=== PATIENT | female | born 1940 | race Caucasian/White ===

== ENCOUNTER → 2019-10-15 08:02 | Outpatient (CLI) | payer MEDICARE, SELFPAY ==
--- NOTE | ~2019-10-15 | MMUS_ITS ---
EXAMINATION: MM diagnostic cookie BI w branden, US breast RT limited HISTORY: Palpable right breast mass TECHNIQUE: Additional 3-D tomosynthesis images of the right breast were performed and synthetic 2-D i mages were generated. CAD analysis was submitted and interpreted. High resolution right breast ultras ound was performed. COMPARISON: None FINDINGS: MAMMOGRAPHIC FINDINGS: The breasts are heterogenously dense, which may obscure small masses. There is an irregular shaped 2. 6 cm mass in the upper outer quadrant of the right breast corresponding to the palpable finding. Ther e are pleomorphic internal calcifications within the mass. There is no mammographic evidence for zack gnancy in the left breast. ULTRASOUND: Limited right breast ultrasound: At 10:00, 7 cm from the nipple in the area of palpable concern there is an irregular shaped hypoechoi c mass measuring 2.8 x 2.2 x 1.6 cm. There is internal vascularity with mixed posterior attenuation. IMPRESSION: 1. Irregular shaped hypoechoic mass of the right breast at 10:00, 7 cm from the nipple measuring 2.8 x 2.2 x 1.6 cm. 2. Recommend ultrasound-guided right breast biopsy. BI-RADS CATEGORY 4-SUSPICIOUS ABNORMALITY Reviewed, dictated and finalized at location A. IMPRESSION: 1. Irregular shaped hypoechoic mass of the right breast at 10:00, 7 cm from the nipple measuring 2.8 x 2.2 x 1.6 cm. 2. Recommend ultrasound-guided right breast biopsy. BI-RADS CATEGORY 4-SUSPICIOUS ABNORMALITY
== END ==
PROVIDERS: PCP Family Medicine; Visit Provider Family Medicine
DX: N63.10 Unspecified lump in the right breast, unspecified quadrant (principal); R92.8 Other abnormal and inconclusive findings on diagnostic imaging of breast
CPT/HCPCS: 76642; 77062; 77066; G0279

== ENCOUNTER 2019-10-23 09:06 | Outpatient (CLI) | payer MEDICARE, SELFPAY ==
--- NOTE | ~2019-10-23 | MM_ITS ---
MM post biopsy invasive RT DATE: 10/23/2019 10:29 INDICATION: Right 10:00 up to 2.8 cm breast mass TECHNIQUE: Digital MLO and cc views following stereotactic breast biopsy of 10:00 right breast mass COMPARISON: None FINDINGS: A radiopaque biopsy marker is present within an irregular hyperdense very suspicious mass s ituated posteriorly in the upper outer quadrant of the right breast. IMPRESSION: Successful biopsy marker placement at large irregular hyperdense mass in posterior upper outer right breast Reviewed, dictated and finalized at Location A. Reviewed, dictated and finalized at location A. IMPRESSION: Successful biopsy marker placement at large irregular hyperdense ma ss in posterior upper outer right breast
--- NOTE | ~2019-10-23 | US_ITS ---
EXAMINATION: US GUIDED NEEDLE BIOPSY DATE: 10/23/2019 10:30 CDT INDICATION: Irregular hypoechoic 2.8 x 2.2 x 1.6 cm 10:00 right breast mass 7 cm from nipple TECHNIQUE AND FINDINGS: The risks and potential benefits of the procedure were discussed with the patient, and written inform ed consent was obtained. Timeout procedure was performed. After sterile preparation of the right digna st, 1% lidocaine was utilized for local anesthesia. A 14G spring-loaded biopsy gun needle was advanced to the edge of the region of interest from a medio lateral approach utilizing sonographic guidance. A total of three tissue core samples were obtained through the lesion. An Inrad tissue marker clip was then placed at the biopsy site. Hemostasis was a chieved. A sterile bandage was applied. The patient tolerated procedure well and there was no evidence of immediate complication. The patien t was given verbal instructions prior to departing from the department. A two view mammogram was orde red to document tissue marker clip placement. The tissue samples were submitted to surgical pathology for histologic analysis. IMPRESSION: 1. Successful ultrasound guided biopsy of right 10:00 breast mass with biopsy marker placement. Plea se refer to pathology report for histologic analysis. Reviewed, dictated and finalized at Location A. Reviewed, dictated and finalized at location A. IMPRESSION: 1. Successful ultrasound guided biopsy of right 10:00 breast mass with biopsy marker placement. Please refer to pathology report for histologic analysis.
== END 2019-10-23 09:07 | disposition home or self-care (01) ==
LOC: ANHIMG 09:09
PROVIDERS: PCP Family Medicine; Visit Provider Family Medicine
DX: N63.41 Unspecified lump in right breast, subareolar (principal); C50.911 Malignant neoplasm of unspecified site of right female breast
CPT/HCPCS: 19083; 88305; 88342

== ENCOUNTER 2019-10-29 09:40 | Outpatient (CLI) | payer MEDICARE, SELFPAY ==
[2019-10-29 10:03] LABS: Basophils Percent Auto 0.4 % (0.2-1.2); Eosinophils Absolute Auto 0.1 K/mm3 (0-0.3); Eosinophils Percent Auto 1.3 % (0-4.4); Hematocrit 36.2 % (37.0-47.0); Hemoglobin 11.4 g/dL (12.0-15.0); Immature Granulocyte Absolute 0.04 K/mm3 (0.00-0.031); Immature Granulocyte Percent A 0.5 % (0-0.5); Lymphocytes Absolute Auto 1.01 K/mm3 (0.9-3.2); Lymphocytes Percent Auto 12.1 % (18.3-44.2); Mean Corpuscular HGB Conc 31.5 g/dl (32-36); Mean Corpuscular Hemoglobin 28.2 pg (26-34); Mean Corpuscular Volume 89.6 fl (80-100); Mean Platelet Volume 9.9 fl (7.4-10.4); Monocytes Absolute Auto 0.6 K/mm3 (0.1-0.6); Monocytes Percent Auto 6.9 % (2.6-8.5); Neutrophils Absolute Auto 6.6 K/mm3 (1.3-6.7); Neutrophils Percent Auto 78.8 % (45.5-73.1); Platelet Count Result 159 k/mm3 (150-375); Red Blood Count 4.04 M/mm3 (4.2-5.4); Red Cell Distribution Width 13.8 % (11.5-14.5); White Blood Count 8.3 K/mm3 (4.5-10.0)
[2019-10-29 12:28] LABS: Alanine Aminotransferase 40 U/L (4-35); Albumin Level 3.9 g/dL (3.5-5.1); Alkaline Phosphatase 61 U/L (38-126); Aspartate Amino Transferase 27 U/L (14-36); Bilirubin,Total 0.3 mg/dL (0.2-1.3); Blood Urea Nitrogen 29 mg/dL (7-17); Calcium 9.1 mg/dL (8.4-10.2); Carbon Dioxide 26 mmol/L (22-30); Chloride 109 mmol/L (98-107); Estimated Glomerular Filt Rate 33; Glucose 117 mg/dL (65-105); Potassium 4.3 mmol/L (3.4-5.0); Sodium 141 mmol/L (137-145)
== END 2019-10-29 09:41 | disposition home or self-care (01) ==
LOC: ANHLAB 09:55
PROVIDERS: PCP Family Medicine; Visit Provider Internal Medicine Hematology & Oncology
DX: C50.911 Malignant neoplasm of unspecified site of right female breast (principal)
CPT/HCPCS: 36415; 80053; 85025

== ENCOUNTER 2019-11-27 09:12 | Outpatient (CLI) | payer MEDICARE, SELFPAY ==
--- NOTE | ~2019-11-27 | NM_ITS ---
EXAMINATION: NM zaida stress w perfusion DATE: 11/27/2019 15:04 CDT INDICATION: Atrial fibrillation. TECHNIQUE: Rest images were obtained following intravenous administration of 9.8 mCi Tc99m tetrofosmi n (Myoview). The patient was infused intravenously with Lexiscan (regadenoson). Then, 30 mCi Tc99m te trofosmin (Myoview) was administered intravenously, and stress images were obtained. Data was reconst ructed into short axis and horizontal and vertical long axis SPECT images. Gated SPECT images were al so obtained. COMPARISON: None. FINDINGS: There is no definite reversible or fixed perfusion abnormality to suggest ischemia or infar ction. There is no segmental wall motion abnormality. Left ventricular ejection fraction measures 7 5%. IMPRESSION: 1. No definite ischemia or infarct. 2. Normal left ventricular ejection fraction measuring 75%. Reviewed, dictated and finalized at location A.
--- NOTE | 2019-11-27 09:00 | EST_ITS ---
Patient Info Name: Angela Guzmán Age: 79 years : 1940 Gender: Female Ht: 61 in Wt: 144 lbs BSA: 1.70 m2 Exam Date: 11/27/2019 11:08 AM Exam Location: [facility] Stress Patient Status: Outpatient Admit Date: 11/27/2019 Staff Ordering Physician: Fawad Richard DO Attending Provider: FAWAD RICHARD DO Exercise Technologist: Emelia Becker RDCS Exam Type: CA stress zaida w NM Study Info Indications I48.0 - Paroxysmal atrial fibrillation A regadenoson stress test was performed. Summary 1. 1. Negative lexiscan stress test for ischemic ST changes by ECG criteria. 2. 2. Baseline hypertension. 3. 3. Nuclear scan to follow and will be reported separately. Please correlate with it. 4. 4. Patient informed of the results. Protocol: Lexiscan Stress ECG Details Stage: REST Duration (min): 6 min : 6 sec HR (bpm): 66 SBP (mmHg): 169 DBP (mmHg): 70 Stage: REST Duration (min): 25 min : 54 sec HR (bpm): 61 SBP (mmHg): 169 DBP (mmHg): 70 Stage: STAGE 1 Duration (min): 1 min : 0 sec HR (bpm): 71 SBP (mmHg): 179 DBP (mmHg): 50 Stage: RECOVERY Duration (min): 1 min : 0 sec HR (bpm): 70 SBP (mmHg): 164 DBP (mmHg): 51 Stage: RECOVERY Duration (min): 2 min : 0 sec HR (bpm): 75 SBP (mmHg): 164 DBP (mmHg): 51 Stage: RECOVERY Duration (min): 3 min : 0 sec HR (bpm): 70 SBP (mmHg): 154 DBP (mmHg): 53 Stage: RECOVERY Duration (min): 3 min : 4 sec HR (bpm): 67 SBP (mmHg): 154 DBP (mmHg): 53 Rest HR: 61 bpm Peak HR: 75 bpm Rest Sys BP: 169 mmHg Peak Sys BP: 179 mmHg Max Pred HR: 139 bpm % Max Pred HR: 54 % Target HR: 118 bpm Max RPP: 13,425 bpm*mmHg Termination Reason: Completed protocol Cardiac Symptoms: Shortness of breath Total Time: 1 min : 0 sec Rest Em BP: 70 mmHg Peak Em BP: 50 mmHg Total Dose: 0.4 mg Resting ECG Atrial fibrillation, delayed R/S transition. Stress ECG No ST changes. Arrhythmias No other arrhythmias. Report Signatures
--- NOTE | 2019-11-27 09:00 | ECHO_ITS ---
Patient Info Name: Angela Guzmán Age: 79 years : 1940 Gender: Female Ht: 61 in Wt: 144 lbs BSA: 1.70 m2 HR: 75 bpm BP: 165 / 71 mmHg Heart Rhythm: Atrial Fibrillation Technical Quality: Good Exam Date: 11/27/2019 9:32 AM Exam Location: [facility] Pulmonary Patient Status: Outpatient Admit Date: 11/27/2019 Staff Ordering Physician: Fawad Salvador DO Official Court Reporter: Esthela Parsons RDCS Attending Provider: Fawad Salvador DO Exam Type: CA echo doppler color flow Study Info Indications - paroxysmal afib Complete two-dimensional, color flow and Doppler transthoracic echocardiogram is performed. Summary 1. Left ventricular chamber dimension is normal. 2. Left ventricular systolic function is normal, estimated at 65-70%. 3. There is moderately increased left ventricular wall thickness. 4. The left ventricular diastolic function is abnormal. 5. E/E' 23 is elevated. 6. Patient is in atrial fibrillation. 7. Left atrial chamber dimension is severely enlarged. 8. Right atrial chamber dimension is moderately enlarged. 9. There is mild aortic valve sclerosis. 10. The mitral valve has moderately calcified annulus. 11. There is mild to moderate mitral valve regurgitation. 12. There is mild to moderate tricuspid valve regurgitation. 13. Moderate pulmonary hypertension, estimated pulmonary arterial systolic pressure is 53 mmHg. 14. Dilated inferior vena cava with >50% collapse upon inspiration consistent with elevated right atrial pressure, 10 mmHg. Left Ventricle Patient is in atrial fibrillation. E/E' 23 is elevated. Left ventricular chamber dimension is normal. Left ventricular systolic function is normal, estimated at 65-70%. There is moderately increased left ventricular wall thickness. The left ventricular diastolic function is abnormal. Right Ventricle Right ventricular chamber dimension is normal. Right ventricular systolic function is normal. Left Atria Left atrial chamber dimension is severely enlarged. Right Atria Right atrial chamber dimension is moderately enlarged. Aortic Valve The aortic valve is trileaflet. There is mild aortic valve sclerosis. There is no aortic valve stenosis. There is no aortic valve regurgitation. Pulmonic Valve There is no pulmonic regurgitation. Mitral Valve The mitral valve has moderately calcified annulus. There is no mitral valve stenosis. There is mild to moderate mitral valve regurgitation. Tricuspid Valve There is mild to moderate tricuspid valve regurgitation. Moderate pulmonary hypertension, estimated pulmonary arterial systolic pressure is 53 mmHg. Pericardium/Pleural There is no pericardial effusion. Inferior Vena Cava Dilated inferior vena cava with >50% collapse upon inspiration consistent with elevated right atrial pressure, 10 mmHg. Aorta The aortic root size at the sinus of Valsalva is normal. Left Ventricular Outflow Tract Name Value Normal LVOT 2D LVOT Diameter 2.0 cm LVOT Doppler LVOT Peak Gradient 4 mmHg LVOT Mean Gradient 2 mmHg LVOT VTI
== END 2019-11-27 09:13 | disposition home or self-care (01) ==
PROVIDERS: PCP Family Medicine; Visit Provider Internal Medicine Cardiovascular Disease
DX: Z01.810 Encounter for preprocedural cardiovascular examination (principal); I48.0 Paroxysmal atrial fibrillation; I51.7 Cardiomegaly; I35.8 Other nonrheumatic aortic valve disorders; I08.1 Rheumatic disorders of both mitral and tricuspid valves; I27.20 Pulmonary hypertension, unspecified
CPT/HCPCS: 78452; 93017; 93306; A9502; J2785

== ENCOUNTER 2020-01-25 10:57 | Outpatient (CLI) | payer MEDICARE, SELFPAY ==
[2020-01-25 11:11] LABS: Basophils Absolute Auto 0.1 K/mm3 (0.0-0.1); Eosinophils Absolute Auto 0.2 K/mm3 (0-0.3); Eosinophils Percent Auto 3.5 % (0-4.4); Hematocrit 34.9 % (37.0-47.0); Hemoglobin 10.7 g/dL (12.0-15.0); Immature Granulocyte Absolute 0.01 K/mm3 (0.00-0.031); Immature Granulocyte Percent A 0.2 % (0-0.5); Lymphocytes Absolute Auto 0.99 K/mm3 (0.9-3.2); Lymphocytes Percent Auto 19.1 % (18.3-44.2); Mean Corpuscular HGB Conc 30.7 g/dl (32-36); Mean Corpuscular Hemoglobin 27.8 pg (26-34); Mean Corpuscular Volume 90.6 fl (80-100); Monocytes Absolute Auto 0.3 K/mm3 (0.1-0.6); Monocytes Percent Auto 5.6 % (2.6-8.5); Neutrophils Absolute Auto 3.7 K/mm3 (1.3-6.7); Neutrophils Percent Auto 70.6 % (45.5-73.1); Platelet Count Result 210 k/mm3 (150-375); Red Blood Count 3.85 M/mm3 (4.2-5.4); Red Cell Distribution Width 13.4 % (11.5-14.5); White Blood Count 5.2 K/mm3 (4.5-10.0)
[2020-01-25 12:28] LABS: Alanine Aminotransferase 25 U/L (4-35); Albumin Level 3.6 g/dL (3.5-5.1); Alkaline Phosphatase 66 U/L (38-126); Aspartate Amino Transferase 28 U/L (14-36); Bilirubin,Total 0.5 mg/dL (0.2-1.3); Blood Urea Nitrogen 26 mg/dL (7-17); Calcium 8.8 mg/dL (8.4-10.2); Carbon Dioxide 28 mmol/L (22-30); Chloride 105 mmol/L (98-107); Estimated Glomerular Filt Rate 33; Glucose 109 mg/dL (65-105); Potassium 4.5 mmol/L (3.4-5.0); Sodium 138 mmol/L (137-145)
[2020-01-27 12:51] LABS: CA 27.29 26 U/mL (<38)
== END 2020-01-25 10:58 | disposition home or self-care (01) ==
PROVIDERS: PCP Family Medicine; Visit Provider Internal Medicine Hematology & Oncology
DX: C50.911 Malignant neoplasm of unspecified site of right female breast (principal)
CPT/HCPCS: 36415; 80053; 85025; 86300

== ENCOUNTER 2020-04-07 14:13 | Outpatient (CLI) | payer MEDICARE, SELFPAY ==
[2020-04-07 14:38] LABS: Basophils Percent Auto 0.6 % (0.2-1.2); Eosinophils Absolute Auto 0.1 K/mm3 (0-0.3); Eosinophils Percent Auto 2.8 % (0-4.4); Immature Granulocyte Absolute 0.01 K/mm3 (0.00-0.031); Immature Granulocyte Percent A 0.3 % (0-0.5); Lymphocytes Absolute Auto 0.48 K/mm3 (0.9-3.2); Lymphocytes Percent Auto 13.3 % (18.3-44.2); Mean Corpuscular HGB Conc 32.3 g/dl (32-36); Mean Corpuscular Hemoglobin 27.5 pg (26-34); Mean Corpuscular Volume 85.2 fl (80-100); Mean Platelet Volume 10.1 fl (7.4-10.4); Monocytes Absolute Auto 0.4 K/mm3 (0.1-0.6); Monocytes Percent Auto 10.2 % (2.6-8.5); Neutrophils Absolute Auto 2.6 K/mm3 (1.3-6.7); Neutrophils Percent Auto 72.8 % (45.5-73.1); Platelet Count Result 124 k/mm3 (150-375); Red Blood Count 3.64 M/mm3 (4.2-5.4); White Blood Count 3.6 K/mm3 (4.5-10.0)
[2020-04-07 14:43] LABS: Blood Urea Nitrogen 35 mg/dL (8-26); Carbon Dioxide 23 mmol/L (22-30); Chloride 105 mmol/L (98-109); Estimated Glomerular Filt Rate 27; Glucose 160 mg/dL (70-105); Potassium 4.9 mmol/L (3.5-4.9); Sodium 139 mmol/L (138-146)
[2020-04-07 17:14] LABS: Alanine Aminotransferase 20 U/L (4-35); Albumin Level 3.6 g/dL (3.5-5.1); Alkaline Phosphatase 77 U/L (38-126); Anion Gap 6 mmol/L (8-16); Aspartate Amino Transferase 23 U/L (14-36); Bilirubin,Total 0.6 mg/dL (0.2-1.3); Blood Urea Nitrogen 38 mg/dL (7-17); Calcium 8.6 mg/dL (8.4-10.2); Carbon Dioxide 24 mmol/L (22-30); Chloride 106 mmol/L (98-107); Estimated Glomerular Filt Rate 29; Glucose 158 mg/dL (65-105); Potassium 5.1 mmol/L (3.4-5.0); Sodium 136 mmol/L (137-145)
== END 2020-04-07 14:14 | disposition home or self-care (01) ==
PROVIDERS: PCP Family Medicine; Visit Provider Internal Medicine Hematology & Oncology
DX: C50.911 Malignant neoplasm of unspecified site of right female breast (principal)
CPT/HCPCS: 36415; 80048; 80053; 85025

== ENCOUNTER 2020-11-15 14:09 | Outpatient (CLI) | payer MEDICARE, SELFPAY ==
[2020-11-15 14:25] LABS: Basophils Percent Auto 0.6 % (0.2-1.2); Eosinophils Percent Auto 0.6 % (0-4.4); Hematocrit 38.5 % (37.0-47.0); Hemoglobin 12.4 g/dL (12.0-15.0); Immature Granulocyte Absolute 0.02 K/mm3 (0.00-0.031); Immature Granulocyte Percent A 0.4 % (0-0.5); Lymphocytes Absolute Auto 0.75 K/mm3 (0.9-3.2); Lymphocytes Percent Auto 14.6 % (18.3-44.2); Mean Corpuscular HGB Conc 32.2 g/dl (32-36); Mean Corpuscular Hemoglobin 28.1 pg (26-34); Mean Corpuscular Volume 87.3 fl (80-100); Mean Platelet Volume 9.3 fl (7.4-10.4); Monocytes Absolute Auto 0.3 K/mm3 (0.1-0.6); Monocytes Percent Auto 5.8 % (2.6-8.5); Platelet Count Result 171 k/mm3 (150-375); Red Blood Count 4.41 M/mm3 (4.2-5.4); Red Cell Distribution Width 14.4 % (11.5-14.5); White Blood Count 5.1 K/mm3 (4.5-10.0)
[2020-11-15 16:30] LABS: Alanine Aminotransferase 18 U/L (4-35); Albumin Level 4.4 g/dL (3.5-5.1); Alkaline Phosphatase 69 U/L (38-126); Anion Gap 5 mmol/L (8-16); Aspartate Amino Transferase 33 U/L (14-36); Blood Urea Nitrogen 21 mg/dL (7-17); Calcium 9.8 mg/dL (8.4-10.2); Carbon Dioxide 32 mmol/L (22-30); Chloride 106 mmol/L (98-107); Estimated Glomerular Filt Rate 31; Glucose 81 mg/dL (65-105); Sodium 143 mmol/L (137-145)
[2020-11-19 08:02] LABS: CA 15-3 20 U/mL (<32)
== END 2020-11-15 14:10 | disposition home or self-care (01) ==
LOC: ANHLAB 14:13
PROVIDERS: PCP Family Medicine; Visit Provider Internal Medicine Hematology & Oncology
DX: C50.911 Malignant neoplasm of unspecified site of right female breast (principal)
CPT/HCPCS: 36415; 80053; 85025; 86300

== ENCOUNTER → 2020-12-19 08:06 | Outpatient (REF) | payer MEDICARE, SELFPAY | LOC: ANHLAB 08:06 | PROVIDERS: PCP Family Medicine; Visit Provider Nurse Practitioner | DX: C44.612 Basal cell carcinoma of skin of right upper limb, including shoulder (principal) | CPT/HCPCS: 88305 ==

== ENCOUNTER → 2021-01-19 16:01 | Outpatient (REF) | payer MEDICARE, SELFPAY | LOC: ANHLAB 16:01 | PROVIDERS: PCP Family Medicine; Visit Provider Nurse Practitioner | DX: D04.5 Carcinoma in situ of skin of trunk (principal); C44.519 Basal cell carcinoma of skin of other part of trunk | CPT/HCPCS: 88305 ==

== ENCOUNTER → 2021-02-20 13:44 | Outpatient (REF) | payer MEDICARE, SELFPAY | LOC: ANHLAB 13:44 | PROVIDERS: PCP Internal Medicine Hematology & Oncology; Visit Provider Nurse Practitioner | DX: C44.529 Squamous cell carcinoma of skin of other part of trunk (principal) | CPT/HCPCS: 88305 ==

== ENCOUNTER 2021-03-20 13:48 | Outpatient (CLI) | payer MEDICARE, SELFPAY ==
[2021-03-20 14:07] LABS: Basophils Percent Auto 0.5 % (0.2-1.2); Eosinophils Absolute Auto 0.1 K/mm3 (0-0.3); Eosinophils Percent Auto 1.6 % (0-4.4); Hemoglobin 10.7 g/dL (12.0-15.0); Immature Granulocyte Absolute 0.02 K/mm3 (0.00-0.031); Immature Granulocyte Percent A 0.5 % (0-0.5); Lymphocytes Absolute Auto 0.46 K/mm3 (0.9-3.2); Lymphocytes Percent Auto 12.5 % (18.3-44.2); Mean Corpuscular HGB Conc 31.5 g/dl (32-36); Mean Platelet Volume 9.6 fl (7.4-10.4); Monocytes Absolute Auto 0.2 K/mm3 (0.1-0.6); Monocytes Percent Auto 6.5 % (2.6-8.5); Neutrophils Absolute Auto 2.9 K/mm3 (1.3-6.7); Neutrophils Percent Auto 78.4 % (45.5-73.1); Platelet Count Result 132 k/mm3 (150-375); Red Blood Count 3.82 M/mm3 (4.2-5.4); Red Cell Distribution Width 15.2 % (11.5-14.5); White Blood Count 3.7 K/mm3 (4.5-10.0)
[2021-03-20 14:10] LABS: Blood Urea Nitrogen 26 mg/dL (8-26); Carbon Dioxide 26 mmol/L (22-30); Chloride 102 mmol/L (98-109); Estimated Glomerular Filt Rate 25; Glucose 218 mg/dL (70-105); Potassium 4.6 mmol/L (3.5-4.9); Sodium 142 mmol/L (138-146)
[2021-03-20 16:51] LABS: Alanine Aminotransferase 24 U/L (4-35); Albumin Level 3.8 g/dL (3.5-5.1); Alkaline Phosphatase 63 U/L (38-126); Anion Gap 8 mmol/L (8-16); Aspartate Amino Transferase 29 U/L (14-36); Bilirubin,Total 0.7 mg/dL (0.2-1.3); Blood Urea Nitrogen 25 mg/dL (7-17); Calcium 9.2 mg/dL (8.4-10.2); Carbon Dioxide 27 mmol/L (22-30); Chloride 106 mmol/L (98-107); Estimated Glomerular Filt Rate 29; Glucose 206 mg/dL (65-110); Potassium 4.8 mmol/L (3.4-5.0); Sodium 141 mmol/L (137-145)
[2021-03-23 07:18] LABS: CA 15-3 18 U/mL (<32)
== END 2021-03-20 13:49 | disposition home or self-care (01) ==
LOC: ANHLAB 13:52
PROVIDERS: PCP Internal Medicine Hematology & Oncology; Visit Provider Internal Medicine Hematology & Oncology
DX: C50.911 Malignant neoplasm of unspecified site of right female breast (principal)
CPT/HCPCS: 36415; 80048; 80053; 85025; 86300

== ENCOUNTER 2021-09-13 11:23 | Outpatient (CLI) | payer MEDICARE, SELFPAY ==
[2021-09-13 11:38] LABS: Basophils Percent Auto 0.6 % (0.2-1.2); Eosinophils Absolute Auto 0.1 K/mm3 (0-0.3); Eosinophils Percent Auto 2.1 % (0-4.4); Hematocrit 35.1 % (37.0-47.0); Hemoglobin 10.7 g/dL (12.0-15.0); Immature Granulocyte Absolute 0.01 K/mm3 (0.00-0.031); Immature Granulocyte Percent A 0.2 % (0-0.5); Lymphocytes Absolute Auto 0.58 K/mm3 (0.9-3.2); Lymphocytes Percent Auto 12.3 % (18.3-44.2); Mean Corpuscular HGB Conc 30.5 g/dl (32-36); Mean Corpuscular Hemoglobin 29.2 pg (26-34); Mean Corpuscular Volume 95.9 fl (80-100); Mean Platelet Volume 9.8 fl (7.4-10.4); Monocytes Absolute Auto 0.3 K/mm3 (0.1-0.6); Monocytes Percent Auto 6.4 % (2.6-8.5); Neutrophils Absolute Auto 3.7 K/mm3 (1.3-6.7); Neutrophils Percent Auto 78.4 % (45.5-73.1); Platelet Count Result 164 k/mm3 (150-375); Red Blood Count 3.66 M/mm3 (4.2-5.4); Red Cell Distribution Width 13.2 % (11.5-14.5); White Blood Count 4.7 K/mm3 (4.5-10.0)
[2021-09-13 16:06] LABS: Alanine Aminotransferase 23 U/L (4-35); Albumin Level 3.9 g/dL (3.5-5.1); Alkaline Phosphatase 69 U/L (38-126); Anion Gap 8 mmol/L (8-16); Aspartate Amino Transferase 34 U/L (14-36); Bilirubin,Total 0.8 mg/dL (0.2-1.3); Blood Urea Nitrogen 35 mg/dL (7-17); Calcium 9.5 mg/dL (8.4-10.2); Carbon Dioxide 26 mmol/L (22-30); Chloride 104 mmol/L (98-107); Estimated Glomerular Filt Rate 25; Glucose 165 mg/dL (65-110); Potassium 5.2 mmol/L (3.4-5.0); Sodium 138 mmol/L (137-145)
[2021-09-16 07:13] LABS: CA 15-3 17 U/mL (<32)
== END 2021-09-13 11:24 | disposition home or self-care (01) ==
LOC: ANHLAB 11:25
PROVIDERS: PCP Family Medicine; Visit Provider Internal Medicine Hematology & Oncology
DX: C50.911 Malignant neoplasm of unspecified site of right female breast (principal)
CPT/HCPCS: 36415; 80053; 85025; 86300

== ENCOUNTER → 2021-09-21 12:15 | Outpatient (REF) | payer MEDICARE, SELFPAY | LOC: ANHLAB 12:15 | PROVIDERS: PCP Family Medicine; Visit Provider Nurse Practitioner | DX: C44.712 Basal cell carcinoma of skin of right lower limb, including hip (principal); D04.71 Carcinoma in situ of skin of right lower limb, including hip; D04.62 Carcinoma in situ of skin of left upper limb, including shoulder | CPT/HCPCS: 88305 ==

== ENCOUNTER → 2021-09-22 12:14 | Outpatient (CLI) | payer MEDICARE, SELFPAY ==
--- NOTE | ~2021-09-22 | DEXA_ITS ---
Bone Density Report Name: SHAWNA LOMAS Age: 81 Sex: Female Ethnicity: White Date of : 1940 Indication: postmenopausal; screening for osteoporosis; height loss; hysterectomy; Referring Provider: Zackary Arriaga Study: Bone densitometry was performed. Exam Date: September 22, 2021 Accession number: [id number] Bone Density: Region BMD T-score Z-score Classification AP Spine (L1-L4) 1.384 3.1 5.9 Normal Femoral Neck (Left) 0.735 -1.0 1.4 Normal Total Hip (Left) 0.905 -0.3 1.9 Normal Femoral Neck (Right) 0.688 -1.4 1.0 Osteopenia Total Hip (Right) 0.836 -0.9 1.4 Normal Total Hip Mean 0.871 -0.6 1.7 Normal World Health Organization criteria for BMD impression classify patients as: Normal (T-score at or above -1.0), Osteopenia (T-score between -1.0 and -2.5), or Osteoporosis (T-score at or below -2.5). 10-year Fracture Risk(1): Major Osteoporotic Fracture 13% Hip Fracture 3.3% Reported Risk Factors: [place] (), Neck BMD=0.688, BMI=28.8 (1) FRAX(R) Version 3.08. Fracture probability calculated for an untreated patient. Fracture probability may be lower if the patient has received treatment. Clinical Information Provided by Patient: Has used the following medications: Vitamin D, Calcium Has the following medical conditions: Hysterectomy Patient maximum height was 63 Menopause Age: 30 No regular weight bearing exercise Does not regularly consume dairy products Drinks caffeinated beverages Onset of menses at age 10 Number of children 2 Impression: The patient has low bone mass, based on the Right Femoral Neck T-score. The patient has an estimated ten-year risk of hip fracture of 3.3% and an estimated ten-year risk of major fracture of 13%, based on the WHO FRAX algorithm. Discussion: BONE DENSITY IS LOW AT ONE OR MORE SKELETAL SITES. THE PATIENT'S BMD AND CLINICAL RISK FACTORS CONTRIBUTE TO THIS PATIENT'S INCREASED RISK OF FRACTURE. This patient's lowest T-score is low at one or more skeletal sites. It meets the World Health Organization's (WHO) criteria for ?low bone mass? (T-score between -1.0 and -2.5). The patient's 10-year risk of hip fracture as calculated by FRAX exceeds the threshold where pharmacological therapy is recommended by the National Osteoporosis Foundation (NOF). However, all treatment decisions require clinical judgment and consideration of individual patient factors, including patient preferences, comorbidities, previous drug use, risk factors not captured in the FRAX model (e.g., frailty, falls, vitamin D deficiency, increased bone turnover, interval significant decline in bone density) and possible under or overestimation of fracture risk by FRAX. The patient should follow a healthful lifestyle (good nutrition with adequate calcium and vitamin D, and appropriate
== END ==
PROVIDERS: PCP Family Medicine; Visit Provider Internal Medicine Hematology & Oncology
DX: Z78.0 Asymptomatic menopausal state (principal); M85.851 Other specified disorders of bone density and structure, right thigh
CPT/HCPCS: 77080

== ENCOUNTER → 2021-10-16 07:13 | Outpatient (REF) | payer MEDICARE, SELFPAY | LOC: ANHLAB 07:13 | PROVIDERS: PCP Family Medicine; Visit Provider Nurse Practitioner | DX: C44.712 Basal cell carcinoma of skin of right lower limb, including hip (principal); C44.722 Squamous cell carcinoma of skin of right lower limb, including hip; C44.629 Squamous cell carcinoma of skin of left upper limb, including shoulder | CPT/HCPCS: 88305; 88331 ==

== ENCOUNTER 2022-02-15 13:59 | Outpatient (RCR) | payer MEDICARE, SELFPAY ==
[2022-02-15 14:19] VITALS: PULSE 69; TEMP 37.7; O2SAT 100
[2022-02-15 14:22] VITALS: BP 130/54
[2022-02-15] MEDS: FAMOTIDINE 20 MG TABLET PO (14:23)
[2022-02-15] MEDS: diphenhydrAMINE HCl CAP 25 MG CAPSULE PO (14:23)
[2022-02-15] MEDS: ACETAMINOPHEN 325 MG TABLET 650 MG PO (14:23)
[2022-02-15] MEDS: BEBTELOVIMAB 175 MG/2 ML VIAL IV PUSH (14:39)
[2022-02-15 15:19] VITALS: BP 132/48; PULSE 58; O2SAT 91
== END 2022-02-15 16:00 ==
LOC: AMCINF 13:59
PROVIDERS: PCP Nurse Practitioner Family; Referring Provider Nurse Practitioner Family; Visit Provider Internal Medicine Hematology & Oncology
DX: U07.1 COVID-19 (principal); I10 Essential (primary) hypertension; I25.10 Atherosclerotic heart disease of native coronary artery without angina pectoris; E11.9 Type 2 diabetes mellitus without complications
CPT/HCPCS: A9270; M0222; Q0222

== ENCOUNTER 2022-03-12 14:15 | Outpatient (CLI) | payer MEDICARE, SELFPAY ==
[2022-03-12 14:28] LABS: Basophils Percent Auto 0.5 % (0.2-1.2); Eosinophils Absolute Auto 0.1 K/mm3 (0-0.3); Eosinophils Percent Auto 2.3 % (0-4.4); Hematocrit 35.1 % (37.0-47.0); Hemoglobin 11.2 g/dL (12.0-15.0); Immature Granulocyte Absolute 0.01 K/mm3 (0.00-0.031); Immature Granulocyte Percent A 0.2 % (0-0.5); Lymphocytes Absolute Auto 0.86 K/mm3 (0.9-3.2); Lymphocytes Percent Auto 19.9 % (18.3-44.2); Mean Corpuscular HGB Conc 31.9 g/dl (32-36); Mean Corpuscular Hemoglobin 28.7 pg (26-34); Mean Platelet Volume 10.8 fl (7.4-10.4); Monocytes Absolute Auto 0.3 K/mm3 (0.1-0.6); Monocytes Percent Auto 7.2 % (2.6-8.5); Neutrophils Percent Auto 69.9 % (45.5-73.1); Platelet Count Result 153 k/mm3 (150-375); Red Cell Distribution Width 13.7 % (11.5-14.5); White Blood Count 4.3 K/mm3 (4.5-10.0)
[2022-03-12 15:21] LABS: Alanine Aminotransferase 21 U/L (6-35); Albumin Level 4.2 g/dL (3.5-5.1); Alkaline Phosphatase 65 U/L (38-126); Anion Gap 9 mmol/L (8-16); Aspartate Amino Transferase 35 U/L (14-36); Bilirubin,Total 0.7 mg/dL (0.2-1.3); Blood Urea Nitrogen 32 mg/dL (7-17); Calcium 9.6 mg/dL (8.4-10.2); Carbon Dioxide 28 mmol/L (22-30); Chloride 103 mmol/L (98-107); Estimated Glomerular Filt Rate 29; Glucose 98 mg/dL (65-110); Potassium 4.6 mmol/L (3.4-5.0); Sodium 140 mmol/L (137-145)
[2022-03-17 06:42] LABS: CA 15-3 21 U/mL (<32)
== END 2022-03-12 14:16 | disposition home or self-care (01) ==
LOC: ANHLAB 14:17
PROVIDERS: PCP Nurse Practitioner Family; Visit Provider Internal Medicine Hematology & Oncology
DX: C50.411 Malignant neoplasm of upper-outer quadrant of right female breast (principal)
CPT/HCPCS: 36415; 80053; 85025; 86300

== ENCOUNTER 2022-05-03 13:11 | Outpatient (NON) | payer MEDICARE, SELFPAY | END 2022-05-03 13:12 | disposition home or self-care (01) | LOC: ANHLAB 05-07 13:14 | PROVIDERS: PCP Family Medicine; Visit Provider Nurse Practitioner | DX: C44.621 Squamous cell carcinoma of skin of unspecified upper limb, including shoulder (principal); C44.729 Squamous cell carcinoma of skin of left lower limb, including hip | CPT/HCPCS: 88305; 88342 ==

== ENCOUNTER 2022-05-27 15:33 | Emergency (ER) | payer MEDICARE, SELFPAY ==
[2022-05-27 15:46] VITALS: BP 138/85; PULSE 67; RESP 16; TEMP 35.9; O2SAT 94
--- NOTE | 2022-05-27 16:49 | ED.WOUNDLAC ---
HPI - Wound/Laceration General Chief Complaint: Wound/Laceration Stated Complaint: leg laceration Time Seen by Provider: 05/27/22 15:56 History of Present Illness HPI narrative: 81-year-old female history of A. fib anticoagulation therapy presents the emergency room with a laceration to her left singh. Patient states that she suffered a mechanical ground-level fall suffering a laceration to her left singh. Family placed in anticoagulation powder to stop the bleeding. Patient denies any other injuries. States her tetanus is up-to-date. Related Data Home Medications Medication Instructions Recorded Confirmed anastrozole 1 mg tablet 1 mg PO DAILY 12/07/19 03/12/22 pravastatin 40 mg tablet 40 mg PO DAILY 02/19/20 03/12/22 ascorbate calcium (vitamin C) 500 500 mg PO DAILY 08/26/20 03/12/22 mg tablet cholecalciferol (vitamin D3) 125 125 mcg PO DAILY 08/26/20 03/12/22 mcg (5,000 unit) capsule cinnamon bark 500 mg capsule 500 mg PO DAILY 08/26/20 03/12/22 garlic 300 mg capsule 300 mg PO DAILY 08/26/20 03/12/22 multivitamin (Daily Multi-Vitamin 1 tablet PO DAILY 08/26/20 03/12/22 tablet) Allergies Allergy/AdvReac Type Severity Reaction Status Date / Time No Known Allergies Allergy Unknown Verified 03/12/22 13:03 Review of Systems Review of Systems: CONSTITUTIONAL: Denies fever, chills, or sweats. EYES: Denies visual changes, redness, or discharge. ENT: Denies rhinorrhea, congestion, sore throat, or otalgia. CARDIOVASCULAR: Denies chest pain, palpitations, or edema. RESPIRATORY: Denies cough or dyspnea. GASTROINTESTINAL: Denies abdominal pain, nausea, vomiting, or diarrhea. GENITOURINARY: Denies dysuria or hematuria. SKIN: Reports laceration to left lower extremity MUSCULOSKELETAL: Denies back pain, joint pain, or myalgia. NEUROLOGIC: Denies headache, numbness, dizziness, or weakness. PSYCHIATRIC: Denies anxiety or depression. FORMERLY [facility], 1928–1983 Past Medical History Medical History Anxiety BMI 26.0-26.9,adult BMI 28.0-28.9,adult Breast mass, right Chronic kidney disease, stage 3 (moderate) Diarrhea Essential (primary) hypertension Invasive ductal carcinoma of breast, female Mixed hyperlipidemia Neuropathy Neuropathy Parkinsons disease Paroxysmal atrial fibrillation Rhinitis Tremor, unspecified Type 2 diabetes mellitus without complications Surgical History Surgical History History of hysterectomy History of mastectomy Family History Family History Mother Cerebrovascular accident Family history of diabetes mellitus in first degree relative Family history of coronary artery disease Family history of atrial fibrillation Social History Social History Smoking packs per day: 1 Smoking cigarettes per day: 20.0 Years smoked: 25 Smoking pack-years: 25.00 Smoking status: Former smoker Tobacco type: cigarettes Alcohol intake: never Spiritual care concerns: No Exam Narrative: GENERAL: Well-appearing, well-nourished, no physical limitations, and in no acute distress. HEAD: Normocephalic, atraumatic. EYES: Conjunctivae normal, PERRLA and EOMI. CHEST: Clear to auscultation. No respiratory distress. No wheezes rales or rhonchi. HEART: Regular rate and rhythm. No murmur heard. Normal peripheral pulses. EXTREMITIES: Normal range of motion. No edema. No clubbing or cyanosis SKIN: 8 cm flap laceration to left singh NEURO: No focal deficits. Alert and oriented x3. MAEW. CN's II-XI intact bilaterally, normal gait PSYCH: Cooperative. Normal mood and affect. Course Vital Signs Vital signs: Vital Signs Temperature 35.9 C L 05/27/22 15:46 Pulse Rate 67 05/27/22 15:46 Respiratory Rate 16 05/27/22 15:46 Blood Pressure 138/85 05/27/22 15:46 Pulse Oximetry 94 05/27/22 15:46
[2022-05-27] MEDS: CEPHALEXIN 500 MG CAPSULE PO (18:24)
== END 2022-05-27 18:00 | disposition home or self-care (01) ==
PROVIDERS: Emergency Provider Nurse Practitioner Family; PCP Family Medicine
DX: S81.812A Laceration without foreign body, left lower leg, initial encounter (principal); I12.9 Hypertensive chronic kidney disease with stage 1 through stage 4 chronic kidney disease, or unspecified chronic kidney disease; E11.22 Type 2 diabetes mellitus with diabetic chronic kidney disease; N18.30 Chronic kidney disease, stage 3 unspecified; I48.0 Paroxysmal atrial fibrillation; E78.2 Mixed hyperlipidemia; E11.40 Type 2 diabetes mellitus with diabetic neuropathy, unspecified; G20 Parkinson's disease; Z90.710 Acquired absence of both cervix and uterus; Z90.10 Acquired absence of unspecified breast and nipple; Z85.3 Personal history of malignant neoplasm of breast; W18.30XA Fall on same level, unspecified, initial encounter; Z79.01 Long term (current) use of anticoagulants; Z79.4 Long term (current) use of insulin
CPT/HCPCS: 12004; 99283; A9270

== ENCOUNTER 2022-06-18 14:00 | Outpatient (NON) | payer MEDICARE, SELFPAY | END 2022-06-18 14:01 | disposition home or self-care (01) | LOC: ANHLAB 14:00 | PROVIDERS: PCP Family Medicine; Visit Provider Nurse Practitioner | DX: C44.729 Squamous cell carcinoma of skin of left lower limb, including hip (principal) | CPT/HCPCS: 88305; 88331 ==

== ENCOUNTER 2022-07-17 07:17 | Outpatient (RCR) | payer MEDICARE, SELFPAY ==
[2022-06-12 13:09] VITALS: BMI 27.4
--- NOTE | 2022-07-11 09:57 | PCWOUND ---
WOCN NOTE Patient called and cancelled appointment for today, stating she is sick. she states she will call back to reschedule when she is feeling better and that her wound is doing fine.
--- NOTE | 2022-08-01 09:18 | PCWOUND ---
WOCN NOTE Patient daughter called to cancel appointment for today, patient fell and is in the hospital. family to call and reschedule when patient ready.
--- NOTE | 2022-08-13 09:54 | PCWOUND ---
CWON NOTE Appointment for today 08/13/22 cancelled due to patient illness. Per daughter, patient in the ER for stroke like symptoms. Will reschedule for a later date.
== END 2022-09-10 08:16 | disposition home or self-care (01) ==
LOC: ANHWOC 07:17
PROVIDERS: PCP Family Medicine; Visit Provider Nurse Practitioner Family
DX: S81.819D Laceration without foreign body, unspecified lower leg, subsequent encounter (principal)
CPT/HCPCS: 99213; 99214; A9270; G0463

== ENCOUNTER 2022-07-31 14:04 | Emergency (ER) | payer MEDICARE, SELFPAY ==
[2022-07-31] VITALS (9 sets, daily range): BP systolic 117–142; BP diastolic 48–86; PULSE 32–56; RESP 14–21; TEMP 36.4; O2SAT 93–98
--- NOTE | ~2022-07-31 | XR_ITS ---
EXAMINATION: XR chest 2V DATE: 07/31/2022 14:46 INDICATION: Syncope. TECHNIQUE: Frontal and lateral views of the chest were obtained. COMPARISON: Chest 2 views 11/27/2007 FINDINGS: There are small pleural effusions. There is a diffuse interstitial pattern, consistent with mild pulmonary edema. No pneumothorax. Cardiomegaly is noted. There are surgical clips in the chest wall bilaterally. IMPRESSION: 1. Mild pulmonary edema. 2. Small pleural effusions. 3. Cardiomegaly. Reviewed, dictated and finalized at location A. INERY MOVER
--- NOTE | ~2022-07-31 | CT_ITS ---
EXAMINATION: CT facial & cervical spine wo DATE: 07/31/2022 14:40 INDICATION: Patient fell and struck left side of head TECHNIQUE: Computed tomography (CT) of the facial bones and maxillofacial region in addition to the c ervical spine was performed without intravenous contrast. Automated exposure control and iterative re construction technique were employed. Exam dose: 232.23 mGy-cm total exam DLP. COMPARISON: None. FINDINGS: There is prominent left frontal cephalohematoma and left periorbital hematoma. The frontozy gomatic sutures, orbital rims and cristina, zygomatic arches, maxillary and petrous temporal bones are a ll intact. Normal alignment at the temporomandibular joints. There is some motion of the mandible but no obvious mandibular fracture is noted. Status post bilateral ocular lens replacements. There is some soft tissue infiltration of the retrocrural bulbar orbital fat, possibly due to hematom a associated with the recent trauma. No coup or contrecoup intracranial injury is evident. There are prominent bilateral carotid siphon in ternal carotid artery calcifications and bilateral vertebral artery calcifications are noted. The paranasal sinuses and mastoid air cells are normally developed and aerated. There is some chronic erosion of the dens of the odontoid process and prominent surrounding soft tiss ue calcification. There is fusion of the apophyseal joints at C2-3 bilaterally and prominent degenerative change at the remaining cervical apophyseal joints. There is degenerative disc disease throughout the cervical spi ne, most pronounced at C5-6 and C6-7. No recent cervical spine fracture or dislocation or locked face t is evident. 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 Reviewed, dictated and finalized at location L. 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
--- NOTE | ~2022-07-31 | CT_ITS ---
Non-contrast Head CT History: Head injury COMPARISON: 01/06/2015 Technique: Axial non-contrast imaging of the brain was performed. Dose reduction technique was used on this scan by utilizing automated exposure control and iterative reconstruction technique. The dose -length product (DLP) was 605.33 mGy-cm. Findings: There is no evidence of intracranial hemorrhage, mass lesion, or acute infarct. Brain par enchyma appears normal. The ventricles and subarachnoid spaces are normal in size. The calvarium ap pears normal. The visualized paranasal sinuses and mastoid air cells are clear. Scalp hematoma noted at the left forehead. Impression: No intracranial abnormality seen. Scalp hematoma at the left forehead. Reviewed, dictated and finalized at [facility]. ERN TACK ASSEMBLY LINE WORKER Impression: No intracranial abnormality seen. Scalp hematoma at the left forehead.
--- NOTE | 2022-07-31 14:06 | ECG_ITS ---
Measurements Intervals [place] Rate: 38 P: IA: 0 QRS: 268 QRSD: 104 T: 46 QT: 526 QTc: 423 Interpretive Statements ATRIAL FIBRILLATION WITH SLOW VENTRICULAR RESPONSE INCOMPLETE RIGHT BUNDLE BRANCH BLOCK DELAYED PRECORDIAL R/S TRANSITION BASELINE ARTIFACT- II, III, AVR, AVL, AVF ABNORMAL ECG NO PREVIOUS ECG AVAILABLE FOR COMPARISON Electronically Signed On 07-31-2022 14:25:34 STACKER TENDER by Fawad Salvador D.O.
--- NOTE | 2022-07-31 14:10 | PC.NURSE ---
Dr. Rosales at bedside to assess pt .
[2022-07-31 14:42] LABS: INR 1.4; Prothrombin Time 16.7 Seconds (11.1-14.7)
[2022-07-31 14:43] LABS: Partial Thromboplastin Time 33.4 SECONDS (22.3-36.8)
[2022-07-31 14:46] LABS: Alanine Aminotransferase 52 U/L (6-35); Albumin Level 3.9 g/dL (3.5-5.1); Alkaline Phosphatase 79 U/L (38-126); Anion Gap 5 mmol/L (8-16); Aspartate Amino Transferase 54 U/L (14-36); Bilirubin,Total 0.5 mg/dL (0.2-1.3); Blood Urea Nitrogen 32 mg/dL (7-17); Calcium 8.6 mg/dL (8.4-10.2); Carbon Dioxide 28 mmol/L (22-30); Chloride 103 mmol/L (98-107); Estimated CRCL calculation 16 ml/min; Estimated Glomerular Filt Rate 22; Glucose 92 mg/dL (65-110); Potassium 4.8 mmol/L (3.4-5.0); Sodium 136 mmol/L (137-145)
[2022-07-31 14:58] LABS: Troponin I 0.016 ng/mL (0.000-0.034)
[2022-07-31 15:03] LABS: Basophils Percent Auto 0.8 % (0.2-1.2); Eosinophils Absolute Auto 0.1 K/mm3 (0-0.3); Hematocrit 35.2 % (37.0-47.0); Hemoglobin 10.6 g/dL (12.0-15.0); Immature Granulocyte Absolute 0.01 K/mm3 (0.00-0.031); Immature Granulocyte Percent A 0.2 % (0-0.5); Lymphocytes Absolute Auto 0.82 K/mm3 (0.9-3.2); Lymphocytes Percent Auto 17.4 % (18.3-44.2); Mean Corpuscular HGB Conc 30.1 g/dl (32-36); Mean Corpuscular Hemoglobin 26.8 pg (26-34); Mean Corpuscular Volume 89.1 fl (80-100); Mean Platelet Volume 11.4 fl (7.4-10.4); Monocytes Absolute Auto 0.4 K/mm3 (0.1-0.6); Monocytes Percent Auto 8.7 % (2.6-8.5); Neutrophils Absolute Auto 3.3 K/mm3 (1.3-6.7); Neutrophils Percent Auto 69.9 % (45.5-73.1); Platelet Count Result 144 k/mm3 (150-375); Red Blood Count 3.95 M/mm3 (4.2-5.4); Red Cell Distribution Width 15.8 % (11.5-14.5); White Blood Count 4.7 K/mm3 (4.5-10.0)
--- NOTE | 2022-07-31 15:19 | ED.FALL ---
HPI - Fall General Chief Complaint: Fall Stated Complaint: glf Time Seen by Provider: 07/31/22 14:08 History of Present Illness HPI Narrative: Patient is an 81-year-old female who presents to the ER status post fall. Patient was at a local shopping center when she fell down to the ground. She is unsure why she fell. Upon arrival EMS noted patient to be bradycardic in the 30s. Patient has hematoma to left forehead and subconjunctival hemorrhage to the left eye. She denies any change in vision or pain with ocular movements. She denies losing consciousness though she does not know how she fell. She does not recall any prodrome of lightheadedness or palpitations prior to falling. Patient is anticoagulated with apixaban. She also takes diltiazem and metoprolol. Related Data Home Medications Medication Instructions Recorded Confirmed ascorbate calcium (vitamin C) 500 500 mg PO DAILY 08/26/20 07/16/22 mg tablet cholecalciferol (vitamin D3) 125 125 mcg PO DAILY 08/26/20 07/16/22 mcg (5,000 unit) capsule cinnamon bark 500 mg capsule 500 mg PO DAILY 08/26/20 07/16/22 garlic 300 mg capsule 300 mg PO DAILY 08/26/20 07/16/22 multivitamin (Daily Multi-Vitamin 1 tablet PO DAILY 08/26/20 07/16/22 tablet) calcium carbonate 600 mg calcium 600 mg PO .QD 07/16/22 07/16/22 (1,500 mg) tablet (Calcium) alprazolam 0.5 mg tablet mg 07/31/22 anastrozole 1 mg tablet mg 07/31/22 apixaban 2.5 mg tablet (Eliquis) mg 07/31/22 diltiazem HCl 240 mg mg PO 07/31/22 capsule,extended release 24 hr escitalopram oxalate 10 mg tablet mg 07/31/22 insulin glargine U-300 conc 300 unit subcut 07/31/22 07/31/22 unit/mL (3 mL) subcutaneous pen (Toujeo Max U-300 SoloStar) irbesartan 150 mg tablet mg 07/31/22 irbesartan 300 mg tablet mg 07/31/22 metoprolol succinate 25 mg mg PO 07/31/22 tablet,extended release 24 hr pravastatin 40 mg tablet mg 07/31/22 pregabalin 25 mg capsule mg 07/31/22 Allergies Allergy/AdvReac Type Severity Reaction Status Date / Time No Known Allergies Allergy Unknown Verified 07/16/22 08:04 Review of Systems Review of Systems: All systems reviewed & are unremarkable except as noted in HPI and below Constitutional: Constitutional: Denies chills, Denies fatigue and Denies fever(s) Eyes: Eyes: Denies change in vision and Denies photophobia Cardiovascular: Cardiovascular: Denies chest pain, Denies rapid heart rate, Denies radiating jaw, neck or arm pain and Reports slow heart rate Respiratory: Respiratory: Denies cough, Denies dyspnea and Denies wheezing Gastrointestinal: Gastrointestinal: Denies abdominal pain, Denies nausea and Denies vomiting Genitourinary: Genitourinary: Reports no additional female genitourinary complaints Musculoskeletal: Musculoskeletal: Reports no additional musculoskeletal complaints Neurologic: Denies dizziness, Denies syncope, Denies headache(s), Denies focal weakness and Denies numbness PMFSH Past Medical History Medical History Anxiety BMI 26.0-26.9,adult BMI 27.0-27.9,adult BMI 28.0-28.9,adult Breast mass, right Chronic kidney disease, stage 3 (moderate) Diarrhea Essential (primary) hypertension Invasive ductal carcinoma of breast, female Laceration of leg Mixed hyperlipidemia Neuropathy Neuropathy Parkinsons disease Paroxysmal atrial fibrillation Rhinitis Tremor, unspecified Type 2 diabetes mellitus without complications Surgical History Surgical History History of hysterectomy History of mastectomy Family History Family History Mother Cerebrovascular accident Family history of diabetes mellitus in first degree relative Family history of coronary artery disease Family history of atrial fibrillation Father , Parkinson's No problems noted. Sibling , C
== END 2022-07-31 17:20 | disposition short-term general hospital (02) ==
PROVIDERS: Emergency Provider Emergency Medicine; PCP Family Medicine
DX: S00.83XA Contusion of other part of head, initial encounter (principal); H05.231 Hemorrhage of right orbit; H11.32 Conjunctival hemorrhage, left eye; I48.0 Paroxysmal atrial fibrillation; I12.9 Hypertensive chronic kidney disease with stage 1 through stage 4 chronic kidney disease, or unspecified chronic kidney disease; E11.22 Type 2 diabetes mellitus with diabetic chronic kidney disease; N18.30 Chronic kidney disease, stage 3 unspecified; E78.2 Mixed hyperlipidemia; E11.40 Type 2 diabetes mellitus with diabetic neuropathy, unspecified; G20 Parkinson's disease; F41.9 Anxiety disorder, unspecified; Z90.10 Acquired absence of unspecified breast and nipple; Z90.710 Acquired absence of both cervix and uterus; Z85.3 Personal history of malignant neoplasm of breast; Z79.01 Long term (current) use of anticoagulants; Z79.4 Long term (current) use of insulin; I45.10 Unspecified right bundle-branch block; I51.7 Cardiomegaly; J81.1 Chronic pulmonary edema; W18.30XA Fall on same level, unspecified, initial encounter
CPT/HCPCS: 36415; 70450; 70486; 71046; 72125; 80053; 84484; 85025; 85610; 85730; 93005; 99291

== ENCOUNTER 2022-08-13 09:47 | Inpatient (IN) | payer MEDICARE, SELFPAY ==
[2022-08-13] VITALS (19 sets, daily range): BP systolic 169–200; BP diastolic 77–128; PULSE 102–122; RESP 10–30; TEMP 36.3–36.6; O2SAT 96–100; BMI 25.5; BMI 23.9
--- NOTE | ~2022-08-13 | CT_ITS ---
EXAMINATION: CT brain wo con DATE: 08/13/2022 10:28 INDICATION: Slurred speech. Frequent falls TECHNIQUE: Computed tomography (CT) of the head was performed without intravenous contrast. The mA wa s adjusted according to patient size. Iterative reconstruction technique was employed. Exam dose: 60 5.33 mGy-cm total exam DLP. COMPARISON: 08/27/2022 CT brain FINDINGS: Bilateral vertebral artery, basilar artery and bilateral carotid siphon internal carotid ar patrick calcifications. There is nonspecific diminished attenuation of the cerebral white matter, likely due to chronic small vessel ischemic changes. No intracranial mass lesion or hemorrhage or cerebrovascular accident. No midline shift or mass effec t. No subdural or epidural hematoma is detected. There is moderate central and cortical cerebral atrophy. Prominent left supraorbital hematoma continuing into the left frontal scalp. No coup or contrecoup in tracranial injury is noted. No skull fracture is detected. The paranasal sinuses and mastoid air cells are normally developed and aerated. Bilateral ocular lens replacements. IMPRESSION: Prominent left supraorbital hematoma, left frontal cephalohematoma; no skull fracture or acute intracranial finding Cerebral atherosclerosis and chronic small vessel ischemic changes Reviewed, dictated and finalized at [facility]. Reviewed, dictated and finalized at [facility]. ENTERPRISE ARCHITECT IMPRESSION: Prominent left supraorbital hematoma, left frontal cephalohematoma ; no skull fracture or acute intracranial finding Cerebral atherosclerosis and chronic small vessel ischemic changes
--- NOTE | ~2022-08-13 | CT_ITS ---
EXAMINATION: CT brain wo con DATE: 08/13/2022 20:21 INDICATION: unresponsive episode, new confusion . TECHNIQUE: Computed tomography (CT) of the head was performed without intravenous contrast. The mA wa s adjusted according to patient size. Iterative reconstruction technique was employed. The dose-lengt h product was 908.00 mGy-cm. COMPARISON: 07/31/2022 and 08/13/2022 at 10:15 AM. FINDINGS: Motion artifact which required repeat imaging. No acute intracranial hemorrhage or extra-axial fluid collection. No hydrocephalus, mass, or herniation. No acute ischemic infarct. Unremarkable dural venous sinus attenuation. No acute osseous abnormality. Left orbital hematoma. The aerated spaces are clear. Moderate atrophy and chronic white matter change. Atherosclerotic intracranial calcification. Bilater al lens replacements. IMPRESSION: Mildly motion limited examination. No acute intracranial process. Reviewed, dictated and finalized at [facility]. M STATION SUPERVISOR
--- NOTE | ~2022-08-13 | XR_ITS ---
XR chest 1V portable DATE: 08/13/2022 10:24 INDICATION: Altered mental status TECHNIQUE: Portable upright AP chest on 08/13/2022 at 1019 hours COMPARISON: 07/31/2022 AP and lateral chest FINDINGS: Surgical clips overlie the axillary lateral chest areas, more numerous on the right. Breast shadows are not evident. Cardiomegaly. Aortic calcification. No hilar or mediastinal enlargement. There is pulmonary vascular redistribution which may indicate mild pulmonary venous hypertension. Mil d prominence of the minor fissure and some Marco A B-lines suggest possible subpleural and pulmonary i nterstitial edema. Stable minimal blunting of the costophrenic angle since 08/17/2022. No pulmonary co nsolidation or pneumothorax is detected. There is diffuse osteopenia. Degenerative spurring of the thoracic spine. IMPRESSION: Cardiomegaly, aortic atherosclerosis Pulmonary vascular redistribution, suggesting pulmonary venous hypertension. Mild prominence of the m inor fissure and some Marco A B-lines may indicate subpleural and pulmonary interstitial edema. Probab le small pleural effusions. Reviewed, dictated and finalized at [facility]. NELER RUNNER IMPRESSION: Cardiomegaly, aortic atherosclerosis Pulmonary vascular redistribution, suggesting pulmonary venous hypertension. Mi ld prominence of the minor fissure and some Marco A B-lines may indicate subpleu ral and pulmonary interstitial edema. Probable small pleural effusions.
--- NOTE | ~2022-08-13 | MR_ITS ---
EXAMINATION: MR brain/brain stem wo con DATE: 08/13/2022 17:16 INDICATION: Slurred speech TECHNIQUE: Magnetic resonance imaging (MRI) of the brain and brainstem was performed without intraven ous contrast. Sequences included sagittal and axial T1-weighted SE, axial diffusion-weighted FS SE, a xial T2*-weighted GRE, axial T2-weighted FLAIR Propeller, and axial T2-weighted Propeller. Apparent d iffusion coefficient (ADC) maps were created. COMPARISON: CT dated 08/13/2022. FINDINGS: Mild generalized atrophy. No acute infarction or hemorrhage. No abnormal mass or mass effec t. There is left frontal scalp hematoma. There are scattered moderate periventricular and subcortical white matter changes, most likely related to small vessel ischemic disease (microangiopathy). Orbits are symmetric without disconjugate gaze. Paranasal sinuses are unremarkable. Structures of the poste rior fossa including 7/8th cranial nerve complexes are normal. Midline sagittal images are within nor mal limits. IMPRESSION: 1. No acute intracranial abnormality. 2: Chronic age-related findings. Reviewed, dictated and finalized at location [facility]. ET CHOPPER ASSEMBLER
--- NOTE | ~2022-08-13 | US_ITS ---
Procedure: Duplex Doppler examination of the bilateral carotids. Indication: CVA Technique: Real time, color-flow and pulse wave Doppler examination of the bilateral carotids was performed. Findings: Ambriz scale ultrasonography of the right neck demonstrated moderate calcified plaques in the right com mon carotid artery and right carotid bulb. There was demonstration of normal color-flow and Doppler w aveforms within the right common, internal and external carotid arteries. The peak systolic velocitie s in the right common, internal and external carotid arteries were demonstrated to be 91 cm/sec, 96 c m/sec and 151 cm/sec respectively. The right ICA/CCA ratio was 1.1.The proximal right internal caroti d artery demonstrates 0% stenosis relative to the normal distal artery lumen diameter. Ambriz scale sonography of the left neck demonstrated moderate plaques at the left carotid bulb. There was demonstration of normal color-flow and wave forms within the left common, internal and external c arotid arteries. The peak systolic velocities in the left common, internal and external carotid arter ies were demonstrated to be 91cm/sec, 107 cm/sec and 190 cm/sec respectively. The left ICA/CCA ratio was 1.2. The proximal left internal carotid artery demonstrates 0% stenosis relative to the normal di stal artery lumen diameter. There was antegrade flow demonstrated in the bilateral vertebral arteries. Impression: No hemodynamically significant stenosis of the bilateral internal carotid arteries. Antegrade flow in the bilateral vertebral arteries. Note: The methodology used is an indirect measurement validated against a direct method (such as the NASCET criteria) that compares diameters at the stenosis to the distal ICA. Reviewed, dictated and finalized at location . CTOR DISTRIBUTION Impression: No hemodynamically significant stenosis of the bilateral internal carotid arter ies. Antegrade flow in the bilateral vertebral arteries. Note: The methodology used is an indirect measurement validated against a direct meth od (such as the NASCET criteria) that compares diameters at the stenosis to the distal ICA.
--- NOTE | ~2022-08-13 | US_ITS ---
EXAMINATION: US abdomen limited DATE: 08/13/2022 18:02 INDICATION: Elevated LFTs TECHNIQUE: Multiple grayscale and Doppler ultrasound images of limited portions of the abdomen were o btained. COMPARISON: None available. FINDINGS: The visualized portions of the pancreas are normal. The liver is normal with normal echogen icity and echotexture. No surface nodularity. Normal hepatopetal flow in the main portal vein. The ga llbladder is normal with no abnormal wall thickening, pericholecystic fluid or stones. The common [place] e duct measures 4 mm. There was no sonographic Valadez sign. IMPRESSION: Normal limited abdominal ultrasound findings. Reviewed, dictated and finalized at location [facility]. ERY OFFICE MANAGER
[2022-08-13 11:04] LABS: Basophils Percent Auto 0.4 % (0.2-1.2); Eosinophils Percent Auto 0.2 % (0-4.4); Hematocrit 41.5 % (37.0-47.0); Hemoglobin 13.4 g/dL (12.0-15.0); Immature Granulocyte Absolute 0.03 K/mm3 (0.00-0.031); Immature Granulocyte Percent A 0.5 % (0-0.5); Lymphocytes Absolute Auto 0.41 K/mm3 (0.9-3.2); Lymphocytes Percent Auto 7.2 % (18.3-44.2); Mean Corpuscular HGB Conc 32.3 g/dl (32-36); Mean Corpuscular Hemoglobin 27.6 pg (26-34); Mean Corpuscular Volume 85.4 fl (80-100); Mean Platelet Volume 11.3 fl (7.4-10.4); Monocytes Absolute Auto 0.2 K/mm3 (0.1-0.6); Monocytes Percent Auto 4.2 % (2.6-8.5); Neutrophils Percent Auto 87.5 % (45.5-73.1); Platelet Count Result 172 k/mm3 (150-375); Red Blood Count 4.86 M/mm3 (4.2-5.4); Red Cell Distribution Width 15.9 % (11.5-14.5); White Blood Count 5.7 K/mm3 (4.5-10.0)
[2022-08-13 11:15] LABS: INR 1.3
[2022-08-13 11:16] LABS: Partial Thromboplastin Time 25.2 SECONDS (22.3-36.8)
[2022-08-13 11:21] LABS: Alanine Aminotransferase 39 U/L (6-35); Albumin Level 4.3 g/dL (3.5-5.1); Alkaline Phosphatase 77 U/L (38-126); Anion Gap 3 mmol/L (8-16); Aspartate Amino Transferase 68 U/L (14-36); Bilirubin,Total 1.9 mg/dL (0.2-1.3); Blood Urea Nitrogen 30 mg/dL (7-17); Calcium 8.8 mg/dL (8.4-10.2); Carbon Dioxide 30 mmol/L (22-30); Chloride 99 mmol/L (98-107); Estimated Glomerular Filt Rate 43; Glucose 310 mg/dL (65-110); Sodium 132 mmol/L (137-145)
--- NOTE | 2022-08-13 11:21 | ED.NEUROSD ---
HPI - Neuro Symptoms/Deficit General Chief Complaint: Neuro Symptoms/Deficit Stated Complaint: increase slurred words, multiple glf, fast 0 Time Seen by Provider: 08/13/22 09:56 History of Present Illness HPI Narrative: Pt lives at home alone. Pt's daughter called her today and she seemed to be confused and slurring her words. Daughter called EMS to have patient brought to ER for evaluation. EMS is source of history. Unsure of last well. Pt suffered ground klevel fall 05/27 and has facila bruising and hematoma to left face. Pt has history of a fib and is on blood thinners. Pt has mild DELCID. Pt denies one sided weakness. Related Data Home Medications Medication Instructions Recorded Confirmed ascorbate calcium (vitamin C) 500 500 mg PO DAILY 08/26/20 08/07/22 mg tablet cholecalciferol (vitamin D3) 125 125 mcg PO DAILY 08/26/20 08/07/22 mcg (5,000 unit) capsule cinnamon bark 500 mg capsule 500 mg PO DAILY 08/26/20 08/07/22 garlic 300 mg capsule 300 mg PO DAILY 08/26/20 08/07/22 multivitamin (Daily Multi-Vitamin 1 tablet PO DAILY 08/26/20 08/13/22 tablet) calcium carbonate 600 mg calcium 600 mg PO .QD 07/16/22 08/07/22 (1,500 mg) tablet (Calcium) artifi.tears(hypromellose)(PF) 0.3 1 drp EACH EYE TID 08/07/22 08/13/22 % eye drops pregabalin 25 mg capsule 25 mg PO BID 08/07/22 08/13/22 Allergies Allergy/AdvReac Type Severity Reaction Status Date / Time No Known Allergies Allergy Unknown Verified 08/13/22 16:30 Review of Systems Review of Systems: All systems reviewed & are unremarkable except as noted in HPI and below PMFSH Past Medical History Medical History (Updated 08/13/22 @ 15:26 by Sharita Ayala PA-C) Anxiety Chronic kidney disease, stage 3 Compression fracture of L1 vertebra Cystic mass of pancreas Incidental pancreatic cyst noted on imaging. Essential (primary) hypertension Heart failure with preserved ejection fraction Echo in November 2019 showed diastolic dysfunction and an ejection fraction of 65 to 70%. Invasive ductal carcinoma of breast, female Mixed hyperlipidemia Parkinsons disease Paroxysmal atrial fibrillation Pulmonary hypertension Moderate pulmonary hypertension with an estimated PA SP of 53 mmHg on echo in November 2019. Retrobulbar hematoma (07/2022) Hospitalized at [facility]. Rhinitis Skin cancer Basal and squamous cell. Type 2 diabetes mellitus Surgical History Surgical History (Updated 08/13/22 @ 15:15 by Sharita Ayala PA-C) History of bilateral cataract extraction History of cardioversion History of colonoscopy Diverticulosis. History of esophagogastroduodenoscopy Reflux esophagitis, hiatal hernia. History of hysterectomy History of mastectomy Family History Family History Mother Cerebrovascular accident Family history of diabetes mellitus in first degree relative Family history of coronary artery disease Family history of atrial fibrillation Father , Parkinson's No problems noted. Sibling , Cancer No problems noted. Social History Social History (Updated 08/13/22 @ 15:15 by Sharita Ayala PA-C) Social History: Surrogate medical decision maker: Sandra Joel, daughter. Code status: Full code. Smoking packs per day: 1 Smoking cigarettes per day: 20.0 Years smoked: 25 Smoking pack-years: 25.00 Smoking status: Former smoker Tobacco type: cigarettes Second hand tobacco smoke exposure: No Alcohol intake: never Substance use: never Substance use type: does not use Lack of Transportation: No Lack of Food: Never True Current Housing: I Have Housing Concerned About Future Housing: No Difficulty Paying Gas/Electric Bills: No Difficulty Paying for Meds: No Currently Unemployed: No Education: High School Diploma/GED Difficulty w/ Childcare or Family Care: No Additional occupation/education comments: Retired
[2022-08-13 11:28] LABS: Appearance Urine Cloudy (Clear); Bilirubin Urine Negative (Negative); Blood Urine 2+ (Negative); Color Urine Yellow (Yellow); Glucose Urine UA 2+ mg/dL (Negative); Ketones Urine Trace mg/dL (Negative); Leukocyte Esterase Ur Negative LEU/UL (Negative); Nitrate Urine Negative (Negative); Protein Urine 3+ mg/dL (Negative); Specific Grav Ur 1.025 (1.001-1.035)
[2022-08-13 11:30] LABS: Troponin I 0.038 ng/mL (0.000-0.034)
[2022-08-13 11:33] LABS: Add Urine Microscopic? YES; Bacteria Urine Trace /hpf; Mucus Urine Heavy /lpf; WBC Urine 0-3 /hpf
[2022-08-13 12:04] LABS: Influenza A QL RT-PCR Negative (Negative); Influenza B QL RT-PCR Negative (Negative); SARS-CoV-2 RNA PCR Negative
[2022-08-13 12:10] LABS: NT Pro B Type Natriuretic Pept 2570 pg/mL (19.9-100)
--- NOTE | 2022-08-13 12:52 | ECG_ITS ---
Measurements Intervals [place] Rate: 105 P: [place]: 0 QRS: -50 QRSD: 90 T: 93 QT: 364 QTc: 482 Interpretive Statements ATRIAL FIBRILLATION WITH RAPID VENTRICULAR RESPONSE LEFT ANTERIOR FASCICULAR BLOCK VOLTAGE CRITERIA FOR LVH NONSPECIFIC ST & T-WAVE ABNORMALITY- INF/HIGH LAT LEADS ABNORMAL ECG COMPARED TO ECG 07/31/2022 14:09:15 HEART RATE HAS INCREASED LEFT ANTERIOR FASCICULAR BLOCK NOW PRESENT ST-T WAVE ABNORMALITY NOW PRESENT Electronically Signed On 08-13-2022 13:05:34 MOTOR VEHICLE DISPATCHER by Fawad Salvador D.O.
--- NOTE | 2022-08-13 14:00 | ADMGEN ---
This patient, Angela Guzmán, was admitted to 3 Med Surg Room 317-02. Patient/family oriented to hospital policies and general routines including ID bracelet, bed and alarms, visiting hours, pain management, procedures, bathroom and other care routines, personal items, smoking policy, room service/diet, and visiting hours. Information on how to activate the Rapid Response Team has been discussed. Patient/Family are encouraged to report perceived risks to care and to ask questions if they do not understand what they are told or what they should do.
--- NOTE | 2022-08-13 15:00 | PM.IMHP ---
H&P: HPI History of Present Illness Date/Time: 08/13/22 15:00 Chief Complaint: Slurred speech. Narrative: This is an 82-year-old female with insulin-dependent diabetes mellitus, hypertension, dyslipidemia, paroxysmal atrial fibrillation on chronic anticoagulation, and anxiety who presented to the emergency department from home for evaluation of slurred speech. She is not able to provide an accurate history at this time and as such a majority of the following is obtained via a review of her electronic medical records as well as discussions with her son who is at bedside. The patient lives alone and she has been ambulating with a walker for the last couple of months. Prior to the beginning of the year she was independent and was running her own errands. On July 31 she had a fall while shopping at [employer] and she was brought to [facility] for evaluation. At that time she denied antecedent symptoms prior to the fall and is presumed that she probably had a syncopal episode; she was reportedly bradycardic in the 30s on EMS arrival. CT of the head showed a prominent left frontocephalic hematoma extending into the left periorbital area with possible mild left retrobulbar hematoma. She was transferred to [facility] for ophthalmology consult and according to family members she was monitored closely for few days and was discharged home. Since that time she has just not been herself and her son reports that she has continued to ?go downhill.? While she has had occasional forgetfulness over the years, it seems to be more pronounced in the last few weeks. This morning she seemed to be confused with slurred speech while on the phone with her daughter and she was brought in for evaluation. Brain CT today did not show any acute findings and her workup has thus far been pretty unremarkable. She was admitted to the [facility] floor for close monitoring and further workup. Shortly after returning from [facility], nursing staff reports that they heard a screeching noise coming from her room and when they entered she was unresponsive. There was no mention of seizure activity at that time and vital signs were stable. Glucose was 182. Within a couple of minutes she became arousable however she remains confused. I re-evaluated the patient thereafter and she was able to give me her name and the month and day of however she was not able to provide me the year of and in fact she seems to be getting tripped up with numbers (speech is almost nonsensical when asked year of , current year, age). She is being transferred to IMU for closer monitoring. With further questioning it sounds as though she has not been taking her alprazolam since [facility] per their recommendations as they thought she was overmedicated; the medication was abruptly stopped without tapering. Review of Systems Review of Systems: Unable to obtain given current clinical condition. [facility] Past Medical History Medical History (Updated 08/13/22 @ 22:38 by Sharita Ayala PA-C) Anxiety Chronic kidney disease, stage 3 Compression fracture of L1 vertebra Cystic mass of pancreas Incidental pancreatic cyst noted on imaging. Essential (primary) hypertension Heart failure with preserved ejection fraction Echo in November 2019 showed diastolic dysfunction and an ejection fraction of 65 to 70%. Invasive ductal carcinoma of breast, female Status post bilateral mastectomy and radiation. Currently on anastrozole. Mixed hyperlipidemia Parkinsons disease Paroxysmal atrial fibrillation Pulmonary hypertension Moderate pulmonary hypertension with an estimated PA SP of 53 mmHg on echo in November 2019. Retrobulbar hematoma (07/2022) [facility]ized at [facility]. Rhinitis Skin cancer Basal and squamous cell. Type 2 diabetes mellitus Surgical History Surgical History (Updated 08/13/22 @ 19:52 by Sharita Ayala PA-C) History of bilateral cataract extraction History of bilateral mastectom
--- NOTE | 2022-08-13 15:19 | ECHO_ITS ---
Patient Info Name: Angela Guzmán Age: 82 years : 1940 Gender: Female Ht: 61 in Wt: 135 lbs BSA: 1.64 m2 HR: 98 bpm BP: 190 / 77 mmHg Heart Rhythm: Atrial Fibrillation Technical Quality: Good Exam Date: 08/13/2022 4:16 PM Exam Location: [facility] Pulmonary Exam Room: [facility] Patient Status: Inpatient Admit Date: 08/13/2022 Staff Ordering Physician: Sharita Ayala PA-C Music Arranger: Esthela Parsons RCS Attending Provider: Jason Winter MD Exam Type: CA echo doppler color flow Study Info Complete two-dimensional, color flow and Doppler transthoracic echocardiogram is performed. Summary 1. Complete two-dimensional, color flow and Doppler transthoracic echocardiogram is performed. 2. Left ventricular chamber dimension is normal. 3. Left ventricular systolic function is normal, estimated at 65-70%. 4. There is moderately increased left ventricular wall thickness. 5. The left ventricular diastolic function is abnormal. 6. E/e' 15 is elevated. 7. Atrial fibrillation. 8. Left atrial chamber dimension is severely enlarged. 9. Right atrial chamber dimension is mildly enlarged. 10. There is moderate aortic valve sclerosis. 11. The mitral valve has moderately calcified annulus. 12. Mild pulmonary hypertension, estimated pulmonary arterial systolic pressure is 46 mmHg. 13. Dilated inferior vena cava with >50% collapse upon inspiration consistent with elevated right atrial pressure, 10 mmHg. Left Ventricle Atrial fibrillation. E/e' 15 is elevated. Left ventricular chamber dimension is normal. Left ventricular systolic function is normal, estimated at 65-70%. There is moderately increased left ventricular wall thickness. The left ventricular diastolic function is abnormal. Right Ventricle Right ventricular chamber dimension is normal. Right ventricular systolic function is normal. Left Atria Left atrial chamber dimension is severely enlarged. Right Atria Right atrial chamber dimension is mildly enlarged. Aortic Valve The aortic valve is trileaflet. There is moderate aortic valve sclerosis. There is no aortic valve stenosis. There is no aortic valve regurgitation. Pulmonic Valve There is no pulmonic regurgitation. Mitral Valve The mitral valve has moderately calcified annulus. There is no mitral valve stenosis. There is no mitral valve regurgitation. Tricuspid Valve There is no tricuspid valve regurgitation. Mild pulmonary hypertension, estimated pulmonary arterial systolic pressure is 46 mmHg. Pericardium/Pleural There is no pericardial effusion. Inferior Vena Cava Dilated inferior vena cava with >50% collapse upon inspiration consistent with elevated right atrial pressure, 10 mmHg. Aorta The aortic root size at the sinus of Valsalva is normal. Left Ventricular Outflow Tract Name Value Normal LVOT 2D LVOT Diameter 2.0 cm LVOT Doppler LVOT Peak Gradient 6 mmHg LVOT Mean Gradient 3 mmHg LVOT VTI 21 cm LVOT VTI/AV VTI Ratio 0.9
--- NOTE | 2022-08-13 16:30 | PC.NURSE ---
spoke with Sandra pt's daughter to confirm home med list
[2022-08-13 16:48] LABS: Glucose Point of Care 193 mg/dl (65-105)
[2022-08-13 16:50] LABS: Troponin I 0.038 ng/mL (0.000-0.034)
[2022-08-13 16:51] LABS: Hemoglobin A1C 6.2 % (<5.7)
--- NOTE | 2022-08-13 16:55 | PC.NURSE ---
to radiology via stretcher for MRI and US
[2022-08-13 17:31] LABS: Hepatitis B Surface Antigen Negative (Negative)
[2022-08-13 17:37] LABS: HAV RESULT Negative (Negative); Hepatitis B Core IgM Result Negative (Negative)
[2022-08-13 17:48] LABS: Hepatitis C Virus Antibody Negative (Negative)
[2022-08-13] MEDS: FUROSEMIDE INJ 40 MG/4 ML VIAL 20 MG IV PUSH (18:12)
[2022-08-13 18:48] LABS: Glucose Point of Care 182 mg/dl (65-105)
--- NOTE | 2022-08-13 19:03 | P.PNCROSS_ITS ---
Event Note Event Note Event Note: RRTc called . patient was unreposnive, make a screeching sound and all etremites stiffned. she was unrepsonsive when i reached. bp in 180s systolic, HR 110s. blood sugar 180s. pupil bilateral equal. she had echymosis on her left side of face. suspect seizure. load with keppra 1 gm and 500 mg bid to follow. after few mnutes, pateitn beamce more responsive wtih spontaneous eyeopening, answers some questions, still confused. check labs, abg. move to IMU closer monitoring and n euro checks.
[2022-08-13 19:04] LABS: Alveolar/Arterial O2 Gradient 33.3 mmHg; Base Excess ABG -3.9 mEq/l (+/-2.0); Fractional Inspired Oxygen 21 %; HCO3 ABG 21.1 mEq/l (22.0-26.0); Oxygen Content ABG 18.4 %vol (16.0-22.0); Oxygen Saturation ABG 93.5 % (95.0-100.0); Oxyhemoglobin 91.9 % THb (90.0-100.0); PCO2 ABG 38.6 mmHg (35.0-45.0); PO2 ABG 70.2 mmHg (80.0-100.0); PO2 FiO2 Ratio Arterial Blood 3.34 %; Total Hemoglobin 14.2 g/dL (12.0-18.0); pH ABG 7.356 (7.350-7.450)
[2022-08-13 19:05] LABS: Device ROOM AIR; Modified Allen's Test Unable to perform; Site Drawn RIGHT RADIAL
[2022-08-13 19:18] LABS: Basophils Percent Auto 0.3 % (0.2-1.2); Eosinophils Percent Auto 0.3 % (0-4.4); Hematocrit 42.9 % (37.0-47.0); Hemoglobin 13.4 g/dL (12.0-15.0); Immature Granulocyte Absolute 0.03 K/mm3 (0.00-0.031); Immature Granulocyte Percent A 0.3 % (0-0.5); Lymphocytes Absolute Auto 2.77 K/mm3 (0.9-3.2); Lymphocytes Percent Auto 31.7 % (18.3-44.2); Mean Corpuscular HGB Conc 31.2 g/dl (32-36); Mean Corpuscular Hemoglobin 27.3 pg (26-34); Mean Corpuscular Volume 87.6 fl (80-100); Mean Platelet Volume 10.8 fl (7.4-10.4); Monocytes Absolute Auto 0.7 K/mm3 (0.1-0.6); Monocytes Percent Auto 8.1 % (2.6-8.5); Neutrophils Absolute Auto 5.2 K/mm3 (1.3-6.7); Neutrophils Percent Auto 59.3 % (45.5-73.1); Platelet Count Result 218 k/mm3 (150-375); Red Cell Distribution Width 15.9 % (11.5-14.5); White Blood Count 8.7 K/mm3 (4.5-10.0)
[2022-08-13 19:39] LABS: Lactic Acid Reflex 9.7 mmol/L (0.7-2.0)
--- NOTE | 2022-08-13 19:58 | PC.NURSE ---
Pt made loud shouting sound heard from hallway, when I entered the room pt had arms drawn up tightly and was unresponsive to commands, eyes were closed, pt making snoring sounds, assisted pt to her side and rapid response was called, rapid response team and RT to bedside, pt did not lose pulse at any time, unable to speak or focus, VS recorded, BS checked and in chart, MD to bedside to give orders and assess pt, daughter called and updated on events, pt moved to IMU room 205-1 episode began at aprox 1840, pt moved at 1905
[2022-08-13 20:22] LABS: Albumin Level 4.3 g/dL (3.5-5.1); Alkaline Phosphatase 73 U/L (38-126); Anion Gap 17 mmol/L (8-16); Aspartate Amino Transferase 52 U/L (14-36); Bilirubin,Total 1.6 mg/dL (0.2-1.3); Blood Urea Nitrogen 25 mg/dL (7-17); Calcium 9.3 mg/dL (8.4-10.2); Carbon Dioxide 18 mmol/L (22-30); Chloride 106 mmol/L (98-107); Estimated CRCL calculation 20 ml/min; Estimated Glomerular Filt Rate 36; Glucose 189 mg/dL (65-110); Sodium 141 mmol/L (137-145)
[2022-08-13 20:28] LABS: Alanine Aminotransferase 47 U/L (6-35)
[2022-08-13 20:33] LABS: Troponin I 0.052 ng/mL (0.000-0.034)
[2022-08-13 21:17] LABS: Glucose Point of Care 251 mg/dl (65-105)
[2022-08-13 22:10] LABS: Reflex Lactic Acid Yes or No Add Lactic
[2022-08-13] MEDS: INSULIN GLARGINE (*BKC) 100 UNITS/ML 25 UNITS SUB-Q (23:02)
[2022-08-13 23:10] LABS: Lactic Acid Reflex 1.2 mmol/L (0.7-2.0)
[2022-08-13 23:13] LABS: CRP 0.5 mg/dL (<1.0)
[2022-08-13] MEDS: METOPROLOL TARTRATE INJ 5 MG/5 ML VIAL (23:50)
[2022-08-14] VITALS (17 sets, daily range): BP systolic 103–195; BP diastolic 44–90; PULSE 73–105; RESP 18–20; TEMP 36.3–36.8; O2SAT 96–100
[2022-08-14] MEDS: METOPROLOL TARTRATE INJ 5 MG/5 ML VIAL IV PUSH ×4 (01:06→17:34)
[2022-08-14 04:49] LABS: Hemoglobin 12.3 g/dL (12.0-15.0); Mean Corpuscular HGB Conc 32.4 g/dl (32-36); Mean Corpuscular Hemoglobin 27.3 pg (26-34); Mean Corpuscular Volume 84.4 fl (80-100); Mean Platelet Volume 10.4 fl (7.4-10.4); Platelet Count Result 174 k/mm3 (150-375); Red Cell Distribution Width 15.6 % (11.5-14.5); White Blood Count 6.9 K/mm3 (4.5-10.0)
[2022-08-14 05:15] LABS: Alanine Aminotransferase 29 U/L (6-35); Albumin Level 3.4 g/dL (3.5-5.1); Alkaline Phosphatase 58 U/L (38-126); Anion Gap 2 mmol/L (8-16); Aspartate Amino Transferase 34 U/L (14-36); Blood Urea Nitrogen 26 mg/dL (7-17); Calcium 8.7 mg/dL (8.4-10.2); Carbon Dioxide 33 mmol/L (22-30); Chloride 101 mmol/L (98-107); Estimated CRCL calculation 22 ml/min; Estimated Glomerular Filt Rate 39; Glucose 66 mg/dL (65-110); Potassium 3.2 mmol/L (3.4-5.0); Sodium 136 mmol/L (137-145)
[2022-08-14 07:48] LABS: Glucose Point of Care 42 mg/dl (65-105)
[2022-08-14] MEDS: DEXTROSE 50% 25 GM/50 ML SYRINGE IV PUSH (08:03)
[2022-08-14] MEDS: ARTIFICIAL TEARS OPHTH SOLN 15 ML BOTTLE 1 DROP EACH EYE ×3 (08:04→17:34)
[2022-08-14] MEDS: DEXTROSE 5% 1,000 ML 1,000 ML 100 ML IVPB (08:05)
[2022-08-14 08:18] LABS: Glucose Point of Care 121 mg/dl (65-105)
[2022-08-14] MEDS: POTASSIUM CHLORIDE 20 MEQ PACKET (FOR LIQUID) 40 MEQ PO (10:42)
[2022-08-14] MEDS: PREGABALIN (*CRX) 25 MG CAPSULE PO ×2 (10:43→21:14)
[2022-08-14] MEDS: CHOLECALCIFEROL 1,000 UNITS TABLET 5000 UNITS PO (10:45)
[2022-08-14] MEDS: ASCORBIC ACID 500 MG TABLET PO (10:45)
[2022-08-14] MEDS: ANASTROZOLE (*CHEMO) 1 MG TABLET PO (10:45)
[2022-08-14] MEDS: MULTIVITAMINS THERAPEUTIC TAB (*BKC) 1 TABLET PO (10:45)
[2022-08-14] MEDS: ESCITALOPRAM OXALATE 10 MG TABLET PO (10:46)
[2022-08-14] MEDS: METOPROLOL SUCCINATE EXT REL 25 MG TABCR PO (10:46)
[2022-08-14] MEDS: CALCIUM CARBONATE (OSCAL) 500 MG TABLET PO (10:46)
--- NOTE | 2022-08-14 11:06 | PCSTNOTE ---
Please refer to the Bedside Swallow Evaluation in the EMR. Please note, silent aspiration cannot be ruled out at bedside.
[2022-08-14 11:41] LABS: Glucose Point of Care 163 mg/dl (65-105)
--- NOTE | 2022-08-14 12:08 | PM.IMPN ---
Progress Note: A&P Assessment and Plan (1) Unresponsive episode: Code(s): R41.89 - Other symptoms and signs involving cognitive functions and awareness Status: Acute Assessment and Plan: Etiology not entirely clear however a brief seizure with postictal state is a possibility given the fact that she was abruptly taken off of alprazolam in the last week or 2. Lactic acid level after this episode was 9.7. There was no mention of seizure activity however when the nurse arrived to the room. She was not hypoglycemic (glucose was 182). MRI noted in did not show any CVA. (2) Atrial fibrillation with rapid ventricular response: Code(s): I48.91 - Unspecified atrial fibrillation Status: Acute Assessment and Plan: On diltiazem and metoprolol at home (did not take medications this morning). Apixaban on hold due to recent fall, head trauma. (3) Lactic acidosis: Code(s): E87.20 - Acidosis, unspecified Status: Acute Assessment and Plan: Lactic acid normal (4) Slurred speech: Code(s): R47.81 - Slurred speech Status: Acute Assessment and Plan: For resolved (5) Elevated troponin: Code(s): R77.8 - Other specified abnormalities of plasma proteins Status: Acute Assessment and Plan: Echocardiogram noted (6) Elevated LFTs: Code(s): R79.89 - Other specified abnormal findings of blood chemistry Status: Acute Assessment and Plan: Abdominal exam is benign. Check hepatitis panel and right upper quadrant ultrasound for completeness sake. Abdominal ultrasound negative (7) Chronic kidney disease, stage 3: Code(s): N18.30 - Chronic kidney disease, stage 3 unspecified Status: Acute Assessment and Plan: Creatinine is stable on review of previous labs. (8) Heart failure with preserved ejection fraction: Code(s): I50.30 - Unspecified diastolic (congestive) heart failure Status: Acute Assessment and Plan: Chest x-ray shows cardiomegaly with mild congestive changes. Lasix IV x1 this evening to see how she responds. Echo and 2020 showed preserved EF and diastolic dysfunction; repeat echo pending. (9) Essential (primary) hypertension: Code(s): I10 - Essential (primary) hypertension Status: Acute Assessment and Plan: Blood pressures were reviewed. They have been running high in the 160s to 170s systolic. Continue antihypertensives for now and monitor closely, making adjustments depending on how she trends. (10) Type 2 diabetes mellitus with hyperglycemia: Code(s): E11.65 - Type 2 diabetes mellitus with hyperglycemia Status: Acute Assessment and Plan: Random glucosewas 310. Continue basal insulin. Initiate sliding scale insulin, Accu-Cheks, and hypoglycemic protocol. Check A1c. (11) Frequent falls: Code(s): R29.6 - Repeated falls Status: Acute Assessment and Plan: Initiate fall precautions. PTOT May need placement. (12) Proteinuria: Code(s): R80.9 - Proteinuria, unspecified Status: Acute Assessment and Plan: Will need to follow up primary as outpatient Subjective Date/time seen: 08/14/22 12:08 Appears to be back to baseline. No slurred speech. Exam Narrative: General: Moderately ill-appearing female in the semi-Cárdenas position in bed. Weight: 57.5 kg. BMI: 24.0. HEENT: Old bruise covering the left side of the face with a hematoma over the left eyebrow. Sclerae anicteric. Conjunctiva mildly injected. PERRL, EOMI. Tacky mucous membranes. Edentulous. No evidence of tongue bite. Neck: Supple. No midline vertebral tenderness. No nuchal rigidity. No obvious bruits. Respiratory: Respirations are nonlabored. Lung sounds are diminished due to poor effort. Cardiovascular: Irregularly irregular rate and rhythm. Telemetry shows AFib/RVR with a rate around 105. Gastrointestinal: Abdomen is so
--- NOTE | 2022-08-14 15:27 | PC.NURSE ---
This patient, Angela Guzmán, was received from IMU on 08/14/22 at 1410. Report received from FRAN Ralph. Patient/family oriented to unit policies and routines
[2022-08-14 16:31] LABS: Glucose Point of Care 159 mg/dl (65-105)
[2022-08-14 20:35] LABS: Glucose Point of Care 215 mg/dl (65-105)
[2022-08-14] MEDS: INSULIN GLARGINE (*BKC) 100 UNITS/ML 25 UNITS SUB-Q (21:13)
[2022-08-15] VITALS (14 sets, daily range): BP systolic 98–159; BP diastolic 54–88; PULSE 60–85; RESP 14–20; TEMP 36.2–36.3; O2SAT 97–100
[2022-08-15] MEDS: METOPROLOL TARTRATE INJ 5 MG/5 ML VIAL IV PUSH ×4 (00:17→17:49)
[2022-08-15 08:10] LABS: Glucose Point of Care 48 mg/dl (65-105)
[2022-08-15] MEDS: DEXTROSE 50% 25 GM/50 ML SYRINGE IV PUSH (08:10)
[2022-08-15 08:37] LABS: Glucose Point of Care 194 mg/dl (65-105)
[2022-08-15] MEDS: ARTIFICIAL TEARS OPHTH SOLN 15 ML BOTTLE 1 DROP EACH EYE ×3 (08:52→17:49)
[2022-08-15] MEDS: MULTIVITAMINS THERAPEUTIC TAB (*BKC) 1 TABLET PO (08:52)
[2022-08-15] MEDS: PREGABALIN (*CRX) 25 MG CAPSULE PO ×2 (08:52→20:11)
[2022-08-15] MEDS: CHOLECALCIFEROL 1,000 UNITS TABLET 5000 UNITS PO (08:52)
[2022-08-15] MEDS: METOPROLOL SUCCINATE EXT REL 25 MG TABCR PO (08:52)
[2022-08-15] MEDS: ANASTROZOLE (*CHEMO) 1 MG TABLET PO (08:53)
[2022-08-15] MEDS: ASCORBIC ACID 500 MG TABLET PO (08:53)
[2022-08-15] MEDS: ESCITALOPRAM OXALATE 10 MG TABLET PO (08:53)
[2022-08-15] MEDS: CALCIUM CARBONATE (OSCAL) 500 MG TABLET PO (08:53)
[2022-08-15 09:53] LABS: Hematocrit 37.2 % (37.0-47.0); Hemoglobin 11.9 g/dL (12.0-15.0); Mean Corpuscular Hemoglobin 27.3 pg (26-34); Mean Corpuscular Volume 85.3 fl (80-100); Mean Platelet Volume 10.9 fl (7.4-10.4); Platelet Count Result 165 k/mm3 (150-375); Red Blood Count 4.36 M/mm3 (4.2-5.4); Red Cell Distribution Width 15.6 % (11.5-14.5); White Blood Count 5.1 K/mm3 (4.5-10.0)
[2022-08-15 10:06] LABS: Alanine Aminotransferase 30 U/L (6-35); Albumin Level 3.3 g/dL (3.5-5.1); Alkaline Phosphatase 54 U/L (38-126); Anion Gap 2 mmol/L (8-16); Aspartate Amino Transferase 35 U/L (14-36); Bilirubin,Total 0.9 mg/dL (0.2-1.3); Blood Urea Nitrogen 33 mg/dL (7-17); Calcium 8.6 mg/dL (8.4-10.2); Carbon Dioxide 34 mmol/L (22-30); Chloride 103 mmol/L (98-107); Estimated CRCL calculation 18 ml/min; Estimated Glomerular Filt Rate 31; Glucose 101 mg/dL (65-110); Magnesium 1.8 mg/dL (1.6-2.3); Potassium 3.6 mmol/L (3.4-5.0); Sodium 139 mmol/L (137-145)
[2022-08-15 11:19] LABS: Glucose Point of Care 93 mg/dl (65-105)
--- NOTE | 2022-08-15 14:09 | PM.IMPN ---
Progress Note: A&P Assessment and Plan (1) Unresponsive episode: Code(s): R41.89 - Other symptoms and signs involving cognitive functions and awareness Status: Acute Assessment and Plan: Etiology not entirely clear however a brief seizure with postictal state is a possibility given the fact that she was abruptly taken off of alprazolam in the last week or 2. Lactic acid level after this episode was 9.7. There was no mention of seizure activity however when the nurse arrived to the room. She was not hypoglycemic (glucose was 182). MRI noted in did not show any CVA. 08/15/2022 interval history: today patient is alert oriented her daughter if present in the room and states patient is her baseline down, however again this morning patient blood sugar was 48, patient is receiving Lantus 25 units at the bedtime reduce it to 15 units at the bedtime and place the patient low sliding scale compared to moderate, will continue to monitor will have a PT OT evaluate the patient, the patient will benefit going to acute rehab. (2) Atrial fibrillation with rapid ventricular response: Code(s): I48.91 - Unspecified atrial fibrillation Status: Acute Assessment and Plan: On diltiazem and metoprolol at home (did not take medications this morning). Apixaban on hold due to recent fall, head trauma. (3) Lactic acidosis: Code(s): E87.20 - Acidosis, unspecified Status: Acute Assessment and Plan: Lactic acid normal (4) Slurred speech: Code(s): R47.81 - Slurred speech Status: Acute Assessment and Plan: For resolved (5) Elevated troponin: Code(s): R77.8 - Other specified abnormalities of plasma proteins Status: Acute Assessment and Plan: Echocardiogram noted (6) Elevated LFTs: Code(s): R79.89 - Other specified abnormal findings of blood chemistry Status: Acute Assessment and Plan: Abdominal exam is benign. Check hepatitis panel and right upper quadrant ultrasound for completeness sake. Abdominal ultrasound negative (7) Chronic kidney disease, stage 3: Code(s): N18.30 - Chronic kidney disease, stage 3 unspecified Status: Acute Assessment and Plan: Creatinine is stable on review of previous labs. (8) Heart failure with preserved ejection fraction: Code(s): I50.30 - Unspecified diastolic (congestive) heart failure Status: Acute Assessment and Plan: Chest x-ray shows cardiomegaly with mild congestive changes. Curryix IV x1 this evening to see how she responds. Echo and 2020 showed preserved EF and diastolic dysfunction; repeat echo pending. (9) Essential (primary) hypertension: Code(s): I10 - Essential (primary) hypertension Status: Acute Assessment and Plan: Blood pressures were reviewed. They have been running high in the 160s to 170s systolic. Continue antihypertensives for now and monitor closely, making adjustments depending on how she trends. (10) Type 2 diabetes mellitus with hyperglycemia: Code(s): E11.65 - Type 2 diabetes mellitus with hyperglycemia Status: Acute Assessment and Plan: Random glucosewas 310. Continue basal insulin. Initiate sliding scale insulin, Accu-Cheks, and hypoglycemic protocol. Check A1c. (11) Frequent falls: Code(s): R29.6 - Repeated falls Status: Acute Assessment and Plan: Initiate fall precautions. PTOT May need placement. (12) Proteinuria: Code(s): R80.9 - Proteinuria, unspecified Status: Acute Assessment and Plan: Will need to follow up primary as outpatient Subjective Date/time seen: 08/15/22 14:09 Etiology not entirely clear however a brief seizure with postictal state is a possibility given the fact that she was abruptly taken off of alprazolam in the last week or 2. Lactic acid level after this episode was 9.7. There was no mention of seizure act
[2022-08-15 16:22] LABS: Glucose Point of Care 127 mg/dl (65-105)
[2022-08-15] MEDS: INSULIN GLARGINE (*BKC) 100 UNITS/ML 15 UNITS SUB-Q (20:10)
[2022-08-15 22:10] LABS: Glucose Point of Care 235 mg/dl (65-105)
[2022-08-16] VITALS (16 sets, daily range): BP systolic 105–164; BP diastolic 51–91; PULSE 61–766; RESP 14–20; TEMP 36.3–36.7; O2SAT 99–100
[2022-08-16 06:17] LABS: Hematocrit 37.6 % (37.0-47.0); Hemoglobin 11.9 g/dL (12.0-15.0); Mean Corpuscular HGB Conc 31.6 g/dl (32-36); Mean Corpuscular Hemoglobin 27.3 pg (26-34); Mean Corpuscular Volume 86.2 fl (80-100); Mean Platelet Volume 10.9 fl (7.4-10.4); Platelet Count Result 167 k/mm3 (150-375); Red Blood Count 4.36 M/mm3 (4.2-5.4); Red Cell Distribution Width 15.6 % (11.5-14.5)
[2022-08-16 06:51] LABS: Alanine Aminotransferase 37 U/L (6-35); Albumin Level 3.2 g/dL (3.5-5.1); Alkaline Phosphatase 59 U/L (38-126); Anion Gap 2 mmol/L (8-16); Aspartate Amino Transferase 42 U/L (14-36); Bilirubin,Total 0.7 mg/dL (0.2-1.3); Blood Urea Nitrogen 34 mg/dL (7-17); Calcium 8.7 mg/dL (8.4-10.2); Carbon Dioxide 33 mmol/L (22-30); Chloride 103 mmol/L (98-107); Estimated CRCL calculation 20 ml/min; Estimated Glomerular Filt Rate 31; Glucose 46 mg/dL (65-110); Magnesium 1.8 mg/dL (1.6-2.3); Potassium 3.5 mmol/L (3.4-5.0); Sodium 138 mmol/L (137-145)
[2022-08-16] MEDS: DEXTROSE 50% 25 GM/50 ML SYRINGE IV PUSH (06:57)
[2022-08-16 07:09] LABS: Glucose Point of Care 193 mg/dl (65-105)
[2022-08-16 07:37] LABS: Glucose Point of Care 137 mg/dl (65-105)
[2022-08-16] MEDS: CHOLECALCIFEROL 1,000 UNITS TABLET 5000 UNITS PO (08:55)
[2022-08-16] MEDS: PREGABALIN (*CRX) 25 MG CAPSULE PO ×2 (08:55→22:06)
[2022-08-16] MEDS: ARTIFICIAL TEARS OPHTH SOLN 15 ML BOTTLE 1 DROP EACH EYE ×3 (08:55→16:50)
[2022-08-16] MEDS: ANASTROZOLE (*CHEMO) 1 MG TABLET PO (08:55)
[2022-08-16] MEDS: METOPROLOL SUCCINATE EXT REL 25 MG TABCR PO (08:55)
[2022-08-16] MEDS: ASCORBIC ACID 500 MG TABLET PO (08:55)
[2022-08-16] MEDS: CALCIUM CARBONATE (OSCAL) 500 MG TABLET PO (08:55)
[2022-08-16] MEDS: MULTIVITAMINS THERAPEUTIC TAB (*BKC) 1 TABLET PO (08:55)
[2022-08-16] MEDS: ESCITALOPRAM OXALATE 10 MG TABLET PO (08:55)
[2022-08-16 11:33] LABS: Glucose Point of Care 107 mg/dl (65-105)
--- NOTE | 2022-08-16 15:49 | PM.IMPN ---
Progress Note: A&P Assessment and Plan (1) Unresponsive episode: Code(s): R41.89 - Other symptoms and signs involving cognitive functions and awareness Status: Acute Assessment and Plan: Etiology not entirely clear however a brief seizure with postictal state is a possibility given the fact that she was abruptly taken off of alprazolam in the last week or 2. Lactic acid level after this episode was 9.7. There was no mention of seizure activity however when the nurse arrived to the room. She was not hypoglycemic (glucose was 182). MRI noted in did not show any CVA. 08/16/2022 interval history: today patient is alert oriented her daughter if present in the room and states patient is her baseline now, however again morning of 08/15 patient fasting blood sugar was 48, patient received Lantus 25 units at the bedtime reduce it was reduce to 15 units at the bedtime and place the patient low sliding scale compared to moderate, again this morninig patient fasting blood sugar was 46, will reduce lantus to 7units at bedtime, patient family wants patient to be in NH, will continue to monitor will have a PT OT evaluate the patient, the patient will benefit going to acute rehab. (2) Atrial fibrillation with rapid ventricular response: Code(s): I48.91 - Unspecified atrial fibrillation Status: Acute Assessment and Plan: On diltiazem and metoprolol at home (did not take medications this morning). Apixaban on hold due to recent fall, head trauma. (3) Lactic acidosis: Code(s): E87.20 - Acidosis, unspecified Status: Acute Assessment and Plan: Lactic acid normal (4) Slurred speech: Code(s): R47.81 - Slurred speech Status: Acute Assessment and Plan: For resolved (5) Elevated troponin: Code(s): R77.8 - Other specified abnormalities of plasma proteins Status: Acute Assessment and Plan: Echocardiogram noted (6) Elevated LFTs: Code(s): R79.89 - Other specified abnormal findings of blood chemistry Status: Acute Assessment and Plan: Abdominal exam is benign. Check hepatitis panel and right upper quadrant ultrasound for completeness sake. Abdominal ultrasound negative (7) Chronic kidney disease, stage 3: Code(s): N18.30 - Chronic kidney disease, stage 3 unspecified Status: Acute Assessment and Plan: Creatinine is stable on review of previous labs. (8) Heart failure with preserved ejection fraction: Code(s): I50.30 - Unspecified diastolic (congestive) heart failure Status: Acute Assessment and Plan: Chest x-ray shows cardiomegaly with mild congestive changes. Lizzie IV x1 this evening to see how she responds. Echo and 2020 showed preserved EF and diastolic dysfunction; repeat echo pending. (9) Essential (primary) hypertension: Code(s): I10 - Essential (primary) hypertension Status: Acute Assessment and Plan: Blood pressures were reviewed. They have been running high in the 160s to 170s systolic. Continue antihypertensives for now and monitor closely, making adjustments depending on how she trends. (10) Type 2 diabetes mellitus with hyperglycemia: Code(s): E11.65 - Type 2 diabetes mellitus with hyperglycemia Status: Acute Assessment and Plan: Random glucosewas 310. Continue basal insulin. Initiate sliding scale insulin, Accu-Cheks, and hypoglycemic protocol. Check A1c. (11) Frequent falls: Code(s): R29.6 - Repeated falls Status: Acute Assessment and Plan: Initiate fall precautions. PTOT May need placement. (12) Proteinuria: Code(s): R80.9 - Proteinuria, unspecified Status: Acute Assessment and Plan: Will need to follow up primary as outpatient Subjective Date/time seen: 08/16/22 15:49 Etiology not entirely clear however a brief seizure with postictal state is a possibility giv
[2022-08-16 16:26] LABS: Glucose Point of Care 206 mg/dl (65-105)
[2022-08-16] MEDS: INSULIN ASPART (*BKC) 100 UNITS/ML SUB-Q (16:49)
[2022-08-16 22:27] LABS: Glucose Point of Care 183 mg/dl (65-105)
[2022-08-17 02:09] VITALS: BP 140/69
[2022-08-17 05:33] VITALS: BP 147/56; PULSE 74; RESP 14; TEMP 36; O2SAT 100
[2022-08-17 07:19] LABS: Hematocrit 37.3 % (37.0-47.0); Hemoglobin 11.8 g/dL (12.0-15.0); Mean Corpuscular HGB Conc 31.6 g/dl (32-36); Mean Corpuscular Hemoglobin 27.3 pg (26-34); Mean Corpuscular Volume 86.1 fl (80-100); Platelet Count Result 158 k/mm3 (150-375); Red Blood Count 4.33 M/mm3 (4.2-5.4); Red Cell Distribution Width 15.5 % (11.5-14.5); White Blood Count 3.8 K/mm3 (4.5-10.0)
[2022-08-17 07:32] LABS: Alanine Aminotransferase 36 U/L (6-35); Alkaline Phosphatase 61 U/L (38-126); Anion Gap 4 mmol/L (8-16); Aspartate Amino Transferase 34 U/L (14-36); Bilirubin,Total 0.9 mg/dL (0.2-1.3); Blood Urea Nitrogen 32 mg/dL (7-17); Calcium 8.5 mg/dL (8.4-10.2); Carbon Dioxide 30 mmol/L (22-30); Chloride 104 mmol/L (98-107); Estimated CRCL calculation 21 ml/min; Estimated Glomerular Filt Rate 33; Glucose 164 mg/dL (65-110); Magnesium 1.7 mg/dL (1.6-2.3); Potassium 3.9 mmol/L (3.4-5.0); Sodium 138 mmol/L (137-145)
[2022-08-17 08:00] LABS: Glucose Point of Care 168 mg/dl (65-105)
[2022-08-17 08:35] VITALS: PULSE 72
[2022-08-17] MEDS: PREGABALIN (*CRX) 25 MG CAPSULE PO (08:35)
[2022-08-17] MEDS: CHOLECALCIFEROL 1,000 UNITS TABLET 5000 UNITS PO (08:35)
[2022-08-17] MEDS: CALCIUM CARBONATE (OSCAL) 500 MG TABLET PO (08:35)
[2022-08-17] MEDS: ASCORBIC ACID 500 MG TABLET PO (08:35)
[2022-08-17] MEDS: ANASTROZOLE (*CHEMO) 1 MG TABLET PO (08:35)
[2022-08-17] MEDS: MULTIVITAMINS THERAPEUTIC TAB (*BKC) 1 TABLET PO (08:35)
[2022-08-17] MEDS: ESCITALOPRAM OXALATE 10 MG TABLET PO (08:35)
[2022-08-17] MEDS: METOPROLOL SUCCINATE EXT REL 25 MG TABCR PO (08:35)
[2022-08-17] MEDS: ARTIFICIAL TEARS OPHTH SOLN 15 ML BOTTLE 1 DROP EACH EYE ×2 (08:36→12:04)
[2022-08-17 10:20] VITALS: O2SAT 98
--- NOTE | 2022-08-17 10:23 | P.CDI_ITS ---
CDI Query Clarified Diagnosis Clarified Diagnosis: Elevated BNP on 08/13/22 lab work. Documented history of CHF. CHF noted on the assessment and plan. Chest Xray shows cardiomegaly with mild congestive changes. Please specify type and acuity of heart failure if known. * Acute * Chronic * Acute on Chronic * Unknown * Systolic * Diastolic * Combined Systolic and Diastolic * Unknown <Anel Holguin RN - Last Filed: 08/17/22 10:27> Provider Comments unable to determine as patient has no documented systolic diastolic dysfunction I was not able to find any cardiac echo <Ciara Albright MD - Last Filed: 09/02/22 15:19>
[2022-08-17 11:37] LABS: Glucose Point of Care 313 mg/dl (65-105)
[2022-08-17] MEDS: INSULIN ASPART (*BKC) 100 UNITS/ML SUB-Q (12:04)
--- NOTE | 2022-08-17 13:17 | P.DS_ITS ---
DS: Admitting Diagnosis Discharge Date 08/17/2022 Admitting Diagnosis Slurred speech. DS: Discharge Diagnosis Discharge Diagnosis (1) Unresponsive episode: Code(s): R41.89 - Other symptoms and signs involving cognitive functions and awareness Status: Acute Assessment and Plan: Etiology not entirely clear however a brief seizure with postictal state is a possibility given the fact that she was abruptly taken off of alprazolam in the last week or 2. Lactic acid level after this episode was 9.7. There was no mention of seizure activity however when the nurse arrived to the room. She was not hypoglycemic (glucose was 182). MRI noted in did not show any CVA. 08/16/2022 interval history: today patient is alert oriented her daughter if present in the room and states patient is her baseline now, however again morning of 08/15 patient fasting blood sugar was 48, patient received Lantus 25 units at the bedtime reduce it was reduce to 15 units at the bedtime and place the patient low sliding scale compared to moderate, again this morninig patient fasting blood sugar was 46, will reduce lantus to 7units at bedtime, patient family wants patient to be in NH, will continue to monitor will have a PT OT evaluate the patient, the patient will benefit going to acute rehab. (2) Atrial fibrillation with rapid ventricular response: Code(s): I48.91 - Unspecified atrial fibrillation Status: Acute Assessment and Plan: On diltiazem and metoprolol at home (did not take medications this morning). Apixaban on hold due to recent fall, head trauma. (3) Lactic acidosis: Code(s): E87.20 - Acidosis, unspecified Status: Acute Assessment and Plan: Lactic acid normal (4) Slurred speech: Code(s): R47.81 - Slurred speech Status: Acute Assessment and Plan: For resolved (5) Elevated troponin: Code(s): R77.8 - Other specified abnormalities of plasma proteins Status: Acute Assessment and Plan: Echocardiogram noted (6) Elevated LFTs: Code(s): R79.89 - Other specified abnormal findings of blood chemistry Status: Acute Assessment and Plan: Abdominal exam is benign. Check hepatitis panel and right upper quadrant ultrasound for completeness sake. Abdominal ultrasound negative (7) Chronic kidney disease, stage 3: Code(s): N18.30 - Chronic kidney disease, stage 3 unspecified Status: Acute Assessment and Plan: Creatinine is stable on review of previous labs. (8) Heart failure with preserved ejection fraction: Code(s): I50.30 - Unspecified diastolic (congestive) heart failure Status: Acute Assessment and Plan: Chest x-ray shows cardiomegaly with mild congestive changes. Lasix IV x1 this evening to see how she responds. Echo and 2020 showed preserved EF and diastolic dysfunction; repeat echo pending. (9) Essential (primary) hypertension: Code(s): I10 - Essential (primary) hypertension Status: Acute Assessment and Plan: Blood pressures were reviewed. They have been running high in the 160s to 170s systolic. Continue antihypertensives for now and monitor closely, making adjustments depending on how she trends. (10) Type 2 diabetes mellitus with hyperglycemia: Code(s): E11.65 - Type 2 diabetes mellitus with hyperglycemia Status: Acute Assessment and Plan: Random glucosewas 310. Continue basal insulin. Initiate sliding scale insulin, Accu-Cheks, and hypoglycemic carly
[2022-08-17 14:00] VITALS: BP 136/56; PULSE 55; RESP 20; TEMP 36.6; O2SAT 100
[2022-08-17 14:17] LABS: EDCOVIDSCREEN Negative (Negative)
== END 2022-08-17 15:30 | DRG 100 ==
LOC: ANHED 12:48 → ANH3MEDSUR 13:58 → ANHIMU 19:11 → ANH3MEDSUR 08-14 14:26
PROVIDERS: Internal Medicine; Physician Assistant; Admitting Provider Chiropractor; Emergency Provider Emergency Medicine; PCP Family Medicine; Visit Provider Family Medicine
DX: R56.9 Unspecified convulsions (principal); I50.33 Acute on chronic diastolic (congestive) heart failure; I13.0 Hypertensive heart and chronic kidney disease with heart failure and stage 1 through stage 4 chronic kidney disease, or unspecified chronic kidney disease; K86.2 Cyst of pancreas; R47.81 Slurred speech; R41.89 Other symptoms and signs involving cognitive functions and awareness; Z20.822 Contact with and (suspected) exposure to COVID-19; E11.65 Type 2 diabetes mellitus with hyperglycemia; N18.30 Chronic kidney disease, stage 3 unspecified; E78.2 Mixed hyperlipidemia; I48.0 Paroxysmal atrial fibrillation; G20 Parkinson's disease; E11.22 Type 2 diabetes mellitus with diabetic chronic kidney disease; F41.9 Anxiety disorder, unspecified; R80.9 Proteinuria, unspecified; R77.8 Other specified abnormalities of plasma proteins; R29.6 Repeated falls; Z85.828 Personal history of other malignant neoplasm of skin; Z85.3 Personal history of malignant neoplasm of breast; Z98.42 Cataract extraction status, left eye; Z98.41 Cataract extraction status, right eye; Z90.710 Acquired absence of both cervix and uterus; Z87.891 Personal history of nicotine dependence; Z79.01 Long term (current) use of anticoagulants
CPT/HCPCS: 36415; 36600; 51701; 70450; 70551; 71045; 76705; 80053; 80074; 81001; 82805; 82948; 83036; 83605; 83735; 83880; 84443; 84484; 85025; 85027; 85610; 85730; 86140; 87040; 87426; 87636; 92523; 92610; 93005; 93306; 93880; 96361; 96374; 96375; 96376; 97110; 97116; 97161; 97165; 97530; 97535; 99285; A9270; C9803; G0378; J1815; J1940; J7070; J7120

== ENCOUNTER 2022-09-13 15:36 | Outpatient (CLI) | payer MEDICARE, SELFPAY ==
--- NOTE | ~2022-09-13 | MR_ITS ---
EXAMINATION: MR abdomen wo/w con INDICATION: Elevated there are function tests TECHNIQUE: Coronal SSFSE ARC, WATER:coronal LAVA-FLEX, Coronal 2D FIESTA FatSat, Axial SSFSE BH ARC, Axial 3D DualEcho BH, Axial SSFSE-IR, Axial DWI b=500, Axial 2D FIESTA FatSat, pre and dynamic postco ntrast Axial LAVA ARC, postcontrast Coronal In and Opposed phase LAVA FLEX COMPARISON: None available CONTRAST: Multihance, 11 cc FINDINGS: There are small pleural effusions, right greater than left. Cardiomegaly is noted. The live r, spleen, gallbladder, and adrenal glands are normal. Cysts of the kidneys measure up to 5 mm on the left. There are no pathologically enlarged abdominal lymph nodes. There are no dilated loops of garrison l. There are at least five cystic lesions in the body and tail of the pancreas. The largest measures 2.6 x 1.6 cm. One of the tail of the pancreas, measuring 9 mm, appears to communicate with the main panc reatic duct. The pancreatic duct is normal in caliber. Postcontrast images are degraded by respirator y motion artifact. No definite abnormal enhancement is seen after contrast administration.. IMPRESSION: 1. Cystic lesions of the pancreas measuring up to 2.6 cm which appears simple. The differential diagn osis includes pseudocyst, intraductal papillary mucinous neoplasm (IPMN), mucinous cystic neoplasm (M CN), and the less common serous cystadenoma and neuroendocrine tumor. Correlate for history of pancre atitis. Follow-up pancreas protocol CT or MRI is recommended in two years. Reviewed, dictated and finalized at location B. RGLASS INSULATION INSTALLER IMPRESSION: 1. Cystic lesions of the pancreas measuring up to 2.6 cm which appears simple. The differential diagnosis includes pseudocyst, intraductal papillary mucinous neoplasm (IPMN), mucinous cystic neoplasm (MCN), and the less common serous cys tadenoma and neuroendocrine tumor. Correlate for history of pancreatitis. Follo w-up pancreas protocol CT or MRI is recommended in two years.
== END 2022-09-13 15:37 | disposition home or self-care (01) ==
PROVIDERS: PCP Family Medicine; Visit Provider Family Medicine
DX: K86.2 Cyst of pancreas (principal)
CPT/HCPCS: 74183; A9577

== ENCOUNTER 2022-09-24 13:12 | Outpatient (CLI) | payer MEDICARE, SELFPAY ==
[2022-09-24 13:26] LABS: Basophils Absolute Auto 0.1 K/mm3 (0.0-0.1); Basophils Percent Auto 1.1 % (0.2-1.2); Eosinophils Absolute Auto 0.1 K/mm3 (0-0.3); Eosinophils Percent Auto 1.5 % (0-4.4); Hematocrit 36.4 % (37.0-47.0); Hemoglobin 11.7 g/dL (12.0-15.0); Immature Granulocyte Absolute 0.01 K/mm3 (0.00-0.031); Immature Granulocyte Percent A 0.2 % (0-0.5); Lymphocytes Percent Auto 23.3 % (18.3-44.2); Mean Corpuscular HGB Conc 32.1 g/dl (32-36); Mean Corpuscular Hemoglobin 28.2 pg (26-34); Mean Corpuscular Volume 87.7 fl (80-100); Mean Platelet Volume 10.2 fl (7.4-10.4); Monocytes Absolute Auto 0.3 K/mm3 (0.1-0.6); Monocytes Percent Auto 6.8 % (2.6-8.5); Neutrophils Absolute Auto 3.2 K/mm3 (1.3-6.7); Neutrophils Percent Auto 67.1 % (45.5-73.1); Platelet Count Result 185 k/mm3 (150-375); Red Blood Count 4.15 M/mm3 (4.2-5.4); Red Cell Distribution Width 15.6 % (11.5-14.5); White Blood Count 4.7 K/mm3 (4.5-10.0)
[2022-09-24 13:31] LABS: Blood Urea Nitrogen 30 mg/dL (8-26); Carbon Dioxide 28 mmol/L (22-30); Chloride 104 mmol/L (98-109); Estimated Glomerular Filt Rate 19; Glucose 127 mg/dL (70-105); Ionized Calcium (POC) 1.18 mmol/L (1.11-1.31); Potassium 4.2 mmol/L (3.5-4.9); Sodium 140 mmol/L (138-146)
[2022-09-24 16:55] LABS: Alanine Aminotransferase 27 U/L (6-35); Albumin Level 3.8 g/dL (3.5-5.1); Alkaline Phosphatase 73 U/L (38-126); Anion Gap 5 mmol/L (8-16); Aspartate Amino Transferase 38 U/L (14-36); Bilirubin,Total 0.4 mg/dL (0.2-1.3); Blood Urea Nitrogen 30 mg/dL (7-17); Calcium 8.9 mg/dL (8.4-10.2); Carbon Dioxide 28 mmol/L (22-30); Chloride 103 mmol/L (98-107); Estimated Glomerular Filt Rate 22; Glucose 120 mg/dL (65-110); Potassium 4.2 mmol/L (3.4-5.0); Sodium 136 mmol/L (137-145)
[2022-09-27 04:17] LABS: CA 15-3 22 U/mL (<32)
== END 2022-09-24 13:13 | disposition home or self-care (01) ==
LOC: ANHLAB 13:15
PROVIDERS: PCP Family Medicine; Visit Provider Internal Medicine Hematology & Oncology
DX: C50.411 Malignant neoplasm of upper-outer quadrant of right female breast (principal)
CPT/HCPCS: 36415; 80047; 80053; 85025; 86300

== ENCOUNTER 2023-03-22 13:48 | Outpatient (CLI) | payer MEDICARE, SELFPAY ==
[2023-03-22 14:04] LABS: Basophils Percent Auto 0.4 % (0.2-1.2); Eosinophils Absolute Auto 0.1 K/mm3 (0-0.3); Eosinophils Percent Auto 2.8 % (0-4.4); Hematocrit 38.3 % (37.0-47.0); Hemoglobin 12.7 g/dL (12.0-15.0); Immature Granulocyte Absolute 0.01 K/mm3 (0.00-0.031); Immature Granulocyte Percent A 0.2 % (0-0.5); Lymphocytes Absolute Auto 1.02 K/mm3 (0.9-3.2); Mean Corpuscular HGB Conc 33.2 g/dl (32-36); Mean Corpuscular Hemoglobin 28.7 pg (26-34); Mean Corpuscular Volume 86.7 fl (80-100); Mean Platelet Volume 10.3 fl (7.4-10.4); Monocytes Absolute Auto 0.3 K/mm3 (0.1-0.6); Monocytes Percent Auto 6.5 % (2.6-8.5); Neutrophils Absolute Auto 3.2 K/mm3 (1.3-6.7); Neutrophils Percent Auto 68.1 % (45.5-73.1); Platelet Count Result 147 k/mm3 (150-375); Red Blood Count 4.42 M/mm3 (4.2-5.4); Red Cell Distribution Width 15.6 % (11.5-14.5); White Blood Count 4.6 K/mm3 (4.5-10.0)
[2023-03-22 16:26] LABS: Alanine Aminotransferase 24 U/L (6-35); Albumin Level 3.9 g/dL (3.5-5.1); Alkaline Phosphatase 71 U/L (38-126); Anion Gap 2 mmol/L (8-16); Aspartate Amino Transferase 29 U/L (14-36); Bilirubin,Total 0.6 mg/dL (0.2-1.3); Blood Urea Nitrogen 39 mg/dL (7-17); Calcium 9.1 mg/dL (8.4-10.2); Carbon Dioxide 27 mmol/L (22-30); Chloride 106 mmol/L (98-107); Estimated Glomerular Filt Rate 24; Glucose 161 mg/dL (65-110); Potassium 4.6 mmol/L (3.4-5.0); Sodium 135 mmol/L (137-145)
[2023-03-27 04:37] LABS: CA 15-3 19 U/mL (<32)
== END 2023-03-22 13:49 | disposition home or self-care (01) ==
LOC: ANHLAB 13:52
PROVIDERS: PCP Family Medicine; Visit Provider Internal Medicine Hematology & Oncology
DX: C50.411 Malignant neoplasm of upper-outer quadrant of right female breast (principal)
CPT/HCPCS: 36415; 80053; 85025; 86300

== ENCOUNTER 2023-05-06 07:00 | Outpatient (NON) | payer MEDICARE, SELFPAY | END 2023-05-06 07:01 | disposition home or self-care (01) | LOC: ANHLAB 05-08 13:12 | PROVIDERS: PCP Family Medicine; Visit Provider Nurse Practitioner | DX: D04.62 Carcinoma in situ of skin of left upper limb, including shoulder (principal); L57.0 Actinic keratosis | CPT/HCPCS: 88305 ==

== ENCOUNTER 2023-06-17 14:18 | Outpatient (NON) | payer MEDICARE, SELFPAY | END 2023-06-17 14:19 | disposition home or self-care (01) | LOC: ANHLAB 14:18 | PROVIDERS: PCP Family Medicine; Visit Provider Nurse Practitioner | DX: C44.629 Squamous cell carcinoma of skin of left upper limb, including shoulder (principal) | CPT/HCPCS: 88305; 88331 ==

== ENCOUNTER 2023-09-25 13:11 | Outpatient (CLI) | payer MEDICARE, SELFPAY ==
[2023-09-25 13:26] LABS: Basophils Percent Auto 0.5 % (0.2-1.2); Eosinophils Absolute Auto 0.1 K/mm3 (0-0.3); Eosinophils Percent Auto 2.5 % (0-4.4); Hematocrit 39.9 % (37.0-47.0); Hemoglobin 13.1 g/dL (12.0-15.0); Immature Granulocyte Absolute 0.01 K/mm3 (0.00-0.031); Immature Granulocyte Percent A 0.2 % (0-0.5); Lymphocytes Absolute Auto 1.04 K/mm3 (0.9-3.2); Lymphocytes Percent Auto 23.7 % (18.3-44.2); Mean Corpuscular HGB Conc 32.8 g/dl (32-36); Mean Corpuscular Hemoglobin 29.1 pg (26-34); Mean Corpuscular Volume 88.7 fl (80-100); Mean Platelet Volume 9.9 fl (7.4-10.4); Monocytes Absolute Auto 0.3 K/mm3 (0.1-0.6); Monocytes Percent Auto 6.2 % (2.6-8.5); Neutrophils Absolute Auto 2.9 K/mm3 (1.3-6.7); Neutrophils Percent Auto 66.9 % (45.5-73.1); Platelet Count Result 142 k/mm3 (150-375); Red Cell Distribution Width 13.5 % (11.5-14.5); White Blood Count 4.4 K/mm3 (4.5-10.0)
[2023-09-25 16:29] LABS: Alanine Aminotransferase 16 U/L (6-35); Alkaline Phosphatase 87 U/L (38-126); Anion Gap 7 mmol/L (8-16); Aspartate Amino Transferase 36 U/L (14-36); Bilirubin,Total 0.6 mg/dL (0.2-1.3); Blood Urea Nitrogen 20 mg/dL (7-17); Calcium 9.3 mg/dL (8.4-10.2); Carbon Dioxide 28 mmol/L (22-30); Chloride 103 mmol/L (98-107); Estimated Glomerular Filt Rate 33; Glucose 184 mg/dL (65-110); Potassium 3.9 mmol/L (3.4-5.0); Sodium 138 mmol/L (137-145)
[2023-09-28 07:31] LABS: CA 15-3 27 U/mL (<32)
== END 2023-09-25 13:12 | disposition home or self-care (01) ==
LOC: ANHLAB 13:14
PROVIDERS: PCP Family Medicine; Visit Provider Internal Medicine Hematology & Oncology
DX: C50.411 Malignant neoplasm of upper-outer quadrant of right female breast (principal)
CPT/HCPCS: 36415; 80053; 85025; 86300

== ENCOUNTER 2024-03-23 08:27 | Outpatient (CLI) | payer MEDICARE, SELFPAY ==
--- NOTE | ~2024-03-23 | DEXA_ITS ---
Bone Density Report Name: SHAWNA LOMAS Age: 83 Sex: Female Ethnicity: White Date of : 1940 Indication: postmenopausal; screening for osteoporosis; height loss; cancer; hysterectomy; Referring Provider: NOHEMI LOPEZ Study: Bone densitometry was performed. Exam Date: March 23, 2024 Accession number: [id number] Bone Density: Region BMD T-score Z-score Classification AP Spine(L1-L4) 1.390 3.1 6.0 Normal Femoral Neck (Left) 0.685 -1.5 1.0 Osteopenia Total Hip (Left) 0.835 -0.9 1.5 Normal Femoral Neck (Right) 0.650 -1.8 0.7 Osteopenia Total Hip (Right) 0.747 -1.6 0.7 Osteopenia Total Hip Mean 0.791 -1.3 1.1 Osteopenia World Health Organization criteria for BMD impression classify patients as: Normal (T-score at or above -1.0), Osteopenia (T-score between -1.0 and -2.5), or Osteoporosis (T-score at or below -2.5). 10-year Fracture Risk(1): Major Osteoporotic Fracture 14% Hip Fracture 4.2% Reported Risk Factors: [place] (), Neck BMD=0.650, BMI=26.4 (1) FRAX(R) Version 3.08. Fracture probability calculated for an untreated patient. Fracture probability may be lower if the patient has received treatment. Clinical Information Provided by Patient: Has used the following medications: Calcium Has the following medical conditions: Cancer, Hysterectomy Patient maximum height was 63.0 No regular weight bearing exercise Drinks caffeinated beverages Onset of menses at age 10 Number of children 2 Impression: The patient has low bone mass, based on the Right Femoral Neck T-score. The patient has an estimated ten-year risk of hip fracture of 4.2% and an estimated ten-year risk of major fracture of 14%, based on the WHO FRAX algorithm. Discussion: BONE DENSITY IS LOW AT ONE OR MORE SKELETAL SITES. THE PATIENT'S BMD AND CLINICAL RISK FACTORS CONTRIBUTE TO THIS PATIENT'S INCREASED RISK OF FRACTURE. This patient's lowest T-score is low at one or more skeletal sites. It meets the World Health Organization's (WHO) criteria for ?low bone mass? (T-score between -1.0 and -2.5). The patient's 10-year risk of hip fracture as calculated by FRAX exceeds the threshold where pharmacological therapy is recommended by the National Osteoporosis Foundation (NOF). However, all treatment decisions require clinical judgment and consideration of individual patient factors, including patient preferences, comorbidities, previous drug use, risk factors not captured in the FRAX model (e.g., frailty, falls, vitamin D deficiency, increased bone turnover, interval significant decline in bone density) and possible under or overestimation of fracture risk by FRAX. The patient should follow a healthful lifestyle (good nutrition with adequate calcium and vitamin D, and appropriate weight-bearing exercise).
== END 2024-03-23 08:28 | disposition home or self-care (01) ==
LOC: ANHIMG 08:29
PROVIDERS: PCP Family Medicine; Visit Provider Nurse Practitioner Family
DX: M81.0 Age-related osteoporosis without current pathological fracture (principal); M85.89 Other specified disorders of bone density and structure, multiple sites
CPT/HCPCS: 77080

== ENCOUNTER 2024-04-02 13:53 | Outpatient (CLI) | payer MEDICARE, SELFPAY ==
[2024-04-02 14:09] LABS: Basophils Percent Auto 0.6 % (0.2-1.2); Eosinophils Absolute Auto 0.1 K/mm3 (0-0.3); Eosinophils Percent Auto 1.7 % (0-4.4); Hematocrit 40.3 % (37.0-47.0); Hemoglobin 13.1 g/dL (12.0-15.0); Immature Granulocyte Absolute 0.02 K/mm3 (0.00-0.031); Immature Granulocyte Percent A 0.4 % (0-0.5); Lymphocytes Absolute Auto 0.85 K/mm3 (0.9-3.2); Lymphocytes Percent Auto 15.7 % (18.3-44.2); Mean Corpuscular HGB Conc 32.5 g/dl (32-36); Mean Corpuscular Hemoglobin 28.1 pg (26-34); Mean Corpuscular Volume 86.5 fl (80-100); Mean Platelet Volume 9.7 fl (7.4-10.4); Monocytes Absolute Auto 0.3 K/mm3 (0.1-0.6); Monocytes Percent Auto 6.1 % (2.6-8.5); Neutrophils Absolute Auto 4.1 K/mm3 (1.3-6.7); Neutrophils Percent Auto 75.5 % (45.5-73.1); Platelet Count Result 165 k/mm3 (150-375); Red Blood Count 4.66 M/mm3 (4.2-5.4); Red Cell Distribution Width 14.1 % (11.5-14.5); White Blood Count 5.4 K/mm3 (4.5-10.0)
[2024-04-02 16:53] LABS: Alanine Aminotransferase 15 U/L (6-35); Albumin Level 4.1 g/dL (3.5-5.1); Alkaline Phosphatase 71 U/L (38-126); Anion Gap 7 mmol/L (4-12); Aspartate Amino Transferase 31 U/L (14-36); Bilirubin,Total 0.7 mg/dL (0.2-1.3); Blood Urea Nitrogen 22 mg/dL (7-17); Calcium 8.9 mg/dL (8.4-10.2); Carbon Dioxide 28 mmol/L (22-30); Chloride 100 mmol/L (98-107); Estimated Glomerular Filt Rate 29; Glucose 161 mg/dL (65-110); Potassium 3.9 mmol/L (3.4-5.0); Sodium 135 mmol/L (137-145)
[2024-04-04 08:09] LABS: CA 15-3 27 U/mL (<32)
== END 2024-04-02 13:54 | disposition home or self-care (01) ==
LOC: ANHLAB 13:55
PROVIDERS: Nurse Practitioner Family; PCP Family Medicine; Visit Provider Internal Medicine Hematology & Oncology
DX: C50.411 Malignant neoplasm of upper-outer quadrant of right female breast (principal)
CPT/HCPCS: 36415; 80053; 85025; 86300

== ENCOUNTER 2024-10-01 14:43 | Outpatient (CLI) | payer MEDICARE, SELFPAY ==
--- NOTE | ~2024-10-01 | MR_ITS ---
EXAMINATION: MR abdomen wo con DATE: 10/01/2024 15:28 INDICATION: Pancreatic cyst. TECHNIQUE: Magnetic resonance imaging (MRI) of the abdomen was performed without intravenous contrast . COMPARISON: Abdomen MRI 09/13/2022 FINDINGS: There are small pleural effusions. There is a 5 mm cyst in the liver. The gallbladder is normal in si ze and contains sludge versus stones. The spleen and adrenal glands are normal. There is a 2.6 cm cys tic lesion of the body of the pancreas. The pancreatic duct is mildly dilated. Pancreas divisum is no angélica. There is a 2.4 cm cystic lesion in the tail of the pancreas. The adrenal glands and right kidney are normal. There is an 11 mm cyst in left kidney. There are no dilated loops of bowel. There are no pathologically enlarged lymph nodes. There is no free intraperitoneal fluid. There is a small slidin g hiatal hernia. IMPRESSION: 1. Cystic lesions of the pancreas, stable from 09/13/2022, likely benign. The differential diagnosis i ncludes pseudocyst, intraductal papillary mucinous neoplasm (IPMN), mucinous cystic neoplasm (MCN), s erous cystadenoma, and neuroendocrine tumor. Given the patient's age, no further follow-up is needed. 2. Small pleural effusions. Reviewed, dictated and finalized at location A. OLIDATOR IMPRESSION: 1. Cystic lesions of the pancreas, stable from 09/13/2022, likely benign. The di fferential diagnosis includes pseudocyst, intraductal papillary mucinous neopla sm (IPMN), mucinous cystic neoplasm (MCN), serous cystadenoma, and neuroendocri ne tumor. Given the patient's age, no further follow-up is needed. 2. Small pleural effusions.
== END 2024-10-01 14:44 | disposition home or self-care (01) ==
LOC: GOSHIMG 14:43
PROVIDERS: PCP Family Medicine; Visit Provider Family Medicine
DX: K86.2 Cyst of pancreas (principal); J90 Pleural effusion, not elsewhere classified
CPT/HCPCS: 74181

== ENCOUNTER 2025-05-04 15:13 | Outpatient (CLI) | payer MEDICARE, SELFPAY ==
[2025-05-04 15:24] LABS: Hematocrit 37.8 % (37.0-47.0); Hemoglobin 12.0 g/dL (12.0-15.0); Immature Granulocyte Percent A 0.5 % (0-0.5); Lymphocytes Absolute Auto 1.09 K/mm3 (0.9-3.2); Mean Corpuscular HGB Conc 31.7 g/dl (32-36); Mean Corpuscular Hemoglobin 28.8 pg (26-34); Mean Corpuscular Volume 90.6 fl (80-100); Nucleated Red Blood Cells Absolute Auto 0.000 K/mm3 (0.0-0.012); Nucleated Red Blood Cells Perc 0.0 % (0.0-0.2); Platelet Count Result 148 k/mm3 (150-375); Red Blood Count 4.17 M/mm3 (4.2-5.4); White Blood Count 4.2 K/mm3 (4.5-10.0)
--- OUTSIDE RECORDS SUMMARY | 2025-05-04 16:03 | XMS_ITS | Encounter Summary ---
Author Organization [facility] Address [address] [place] [address] Care Team Providers Care Golf Sales Manager Name Role Phone Alton Bull MD Primary Care Provider [phone] Encounter Details Date Type Department Care Team (Late Contact Info) Description 01/20/2020 Chart Note [facility] Radiation Therapy [address] [place] [address] [place] [address] [place] [address] Social History Tobacco Use Types Packs/Day Years Used Date Smoking Tobacco: Former Cigarettes 0.5 25 0 10/28/1973 - 10/28/1998 Smokeless Tobacco: Never Alcohol Use Standard Drinks/Week Comments Not Currently 0 (1 standard drink = 0.6 oz pur e alcohol) Comments No Sex and Gender Information Value Date Recorded Sex Assigned at Not on file Legal Sex Female 2:34 PM CDT Gender Identity Not on file Sexual Orientation Not on file COVID-19 Exposure Response Date Recorded In the last month, have you been in contact with someone who was confirmed or suspected to have Coronavirus / COVID-19? No / Unsure 01/21/2020 9:26 AM CDT documented as of this encounter Plan of Treatment Upcoming Encounters Date Type Department Care Team (Late Contact Info) Description 05/11/2025 3:45 PM CDT Office Visit [facility] Oncology and Hematology - [place] [address] [facility] [address] [place] [address] Zackary Arriaga MD [address] [facility] [address] [place] [address] documented as of this encounter Visit Diagnoses Not on filedocumented in this encounter Care Teams Golf Sales Manager Relationship Specialty Start Date End Date Alton Bull MD [address] [place] [address] PCP - General Family Practice 10/26/19 documented as of this encounter
--- OUTSIDE RECORDS SUMMARY | 2025-05-04 16:03 | XMS_ITS | Clinical Summary ---
Author Organization [facility] Aamir Sterling Address [address] [place] [address] Care Team Providers Care Power House Engineer Name Role Phone Alton Bull MD Primary Care Provider [phone] Allergies No known active allergies Medications pravastatin (PRAVACHOL) 40 mg tablet Take 40 mg by mouth daily at bedtime. 9 Active losartan (COZAAR) 100 mg tablet TK 1 T PO QD 9 Active insulin glargine U-300 conc (Toujeo SoloStar U-300 Insulin) 300 unit/mL pen syringe Inject 48 Units by subcutaneous injection one time only. 9 Active diltiaZEM (Cartia XT) 240 mg Controlled Delivery 24 hour capsule Take 240 mg by mouth daily. 9 Active multivitamin (DAILY-HELADIO) tablet Take 1 Tablet by mouth daily. Active metoprolol succinate (TOPROL XL) 25 mg Extended Release 24 hour tablet Take 50 mg by mouth daily. Active GARLIC ORAL Take by mouth. Act fernando OneTouch Ultra Test Strip USE 1 STRIP TO CHECK GLUCOSE ONCE DAILY 1 Active BinaxNOW COVID-19 Ag Self Test Kit USE DIRECTED 2 Active pregabalin (LYRICA) 50 mg Capsule Take 50 mg by mouth daily at bedtime. 4 Active apixaban (Eliquis) 5 mg tablet Take 5 mg by mouth 2 times daily. Active tamoxifen (NOLVADEX) 20 mg tablet Take 1 Tablet (20 mg) by mouth daily. 90 Tablet 3 4 Active tamoxifen (NOLVADEX) 10 mg tablet TAKE 2 TABLETS BY MOUTH AT BEDTIME 90 Tablet 5 Active Active Problems Patient Care Coordination No te Formatting of this note migh t be different from the original. Primary Care: Alton Bull MD Referring Provider: Alton Bull MD [address] [place] [address] Other: Dr. 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 10/29/2019 Encounters Date Type Department Care Team Description 03/16/2025 External Device Data STL ABSTRACTION Provider, Abstract 03/02/2025 External Device Data ST[facility] ABSTRACTION Provider, Abstract 02/10/2025 External Device Data [facility] ABSTRACTION Provider, Abstract 02/09/2025 External Device Data ST[facility] ABSTRACTION Provider, Abstract from Last 3 Months Family History Medical History Relation Name Comments Cancer Brother 1 Lung Cancer Brother 1 Cancer Brother 2 Lung Cancer Brother 2 Diabetes Mother Heart defect Mother Breast Cancer Other 1 niece 30's Cancer Other 1 niece 30's Breast Cancer Other 2 niece 30's Cancer Other 2 niece 30's Ovarian Cancer Neg Hx Relation Name Status Comments Brother 1 Brother 2 Daughter Alive Father Mother Other 1 niece 30's Alive Other 2 niece 30's Alive Son Alive Social History Tobacco Use Types Packs/Day Years Used Date Smoking Tobacco: Former Cigarettes 0.5 25 0 10/28/1973 - 10/28/1998 Smokeless Tobacco: Never Tobacco Cessation:Counseling Given: Not Answered Alcohol Use Standard Drinks/Week Comments Not Currently 0 (1 standard drink = 0.6 oz pur e alcohol) Comments No Sex and Gender Information Value Date Recorded Sex Assigned at Not on file Legal Sex Female 2:34 PM CDT Gender Identity Not on file Sexual Orientation Not on file Last Filed Vital Signs Vital Sign Reading Time Taken Comments Blood Pressure 159/55 04/08/2024 11:46 AM CDT Pulse 80 04/08/2024 11:41 AM CDT Temperature 36.7 C (98 F) 04/08/2024 11:41 AM CDT Respiratory Rate 16 04/08/2024 11:41 AM CDT Oxygen Saturation 98% 04/08/2024 11:41 AM CDT Inhaled Oxygen Concentration - - Weight 64.9 kg (143 lb) 04/08/2024 11:41 AM CDT Height 154.9 cm (5' 1) 03/22/2022 1:02 PM CDT Body Mass Index 27.02 03/22/2022 1:02 PM CDT Plan of Treatment Upcoming Encounters Date Type Department Care Team (Late st Contact Info) Description 05/11/2025 3:45 PM CDT Office Visit [facility] Oncology and Hematology - [place] [address] [place] [address] Zackary Arriaga MD [address] [place] [address] Health Maintenance Due Date Last Done Comments DIABETES ANNUAL FOOT EXAM 1958 DIABETES MICROALBUMIN ANNUAL SCREEN 1956 LDL CHOLESTEROL ANNUAL 1956 DTAP/TDAP/TD VACCINES (1 - Tdap) 1957 RSV VACCINE (60+ or ) (1 - 1-dose 75+ series) 2013 DIABETES ANNUAL RETINAL EXAM 07/31/202309/2022, 01/31/2022, 11/12/2018, Additional history exists DIABETES HBA1C Q 6 MONTHS 12/31/20232022, 11/26/2022, 08/02/2022, Additional history exists [place] Ad[place] Preventative Visit/Annual Wellness Visit 07/29/2024 INFLUENZA VACCINE (#1) 2025 , 06/05/2021, 05/12/2020, Additional history exists OSTEOPOROSIS SCREENING 09/22/2026 09/22/2021 PNEUMOCOCCAL VACCINE 50+ YEARS Completed 0 03/29/2018, 12/16/2016, 05/24/2015 ZOSTER VACCINE Completed 12/24/2018, 09/28, 05/12/2013 Medical Devices Implanted Type Area Security Guard Supervisor Device Identifier Shelf Expiration Date Model / Serial / Lot Broadcast Engineer Clip Surgiclip Ii Lionel 9.75in [id number] - [id number] Implanted:Qty : 1 on 01/04/2020 by Catina Carter MD at [facility] Clip N/A: Breast [employer] - COVIDIEN [id number] 09/25/2024 [id number] / / [id number] Description:Used on both lef t and right breast Broadcast Engineer Clip Surgiclip Ii Lionel 9.75in [id number] - [id number] Implanted:Qty : 1 on 01/04/2020 by Catina Carter MD at [facility] Clip Right: Breast [employer] - COVIDIEN [id number] 09/25/2024 [id number] / / [id number] Hemostatic Surgicel 4x8in 1953 - [id number] Implanted:Qty : 2 on 01/04/2020 by Catina Carter MD at [facility] Hemostatic Left: Breast [employer] 02/26/20241951 / / [id number] Hemostatic Surgicel 4x8in 1953 - [id number] Implanted:Qty : 2 on 01/04/2020 by Catina Carter MD at [facility] Hemostatic Right: Breast [employer] 02/26/20241953 / / [id number] Insurance [facility] [id number] RX OPTUM RX Member Subscriber Plan / Payer (Ef fective 2019-Present) Name:Angela Guzmán Relation to Subscriber:Self Name:Angela Guzmán Payer ID:Not on file Group ID:[id number] Type:RX Commercial Address: [address] [facility] [id number] Advance Directives For more information, please contact: [phone] * Full Code (Latest Code Status on File) Date Activated Date Inactivated Comments 01/04/2020 4:49 PM 01/06/2020 3:27 PM Care Teams Power House Engineer Relationship Specialty Start Date End Date Alton Bull MD [address] [place] [address] PCP - General Family Practice 10/26/19
--- OUTSIDE RECORDS SUMMARY | 2025-05-04 16:03 | XMS_ITS | Encounter Summary ---
Author Organization [facility] Address [address] [place] [address] Care Team Providers Care Medical Editor Name Role Phone Alton Bull MD Primary Care Provider [phone] Encounter Details Date Type Department Care Team (Late st Contact Info) Description 2022 Ophth Exam [facility] [address] [place] [id number] Huy Alas MD [facility] [address] [place] [address] Social History Tobacco Use Types Packs/Day Years Used Date Smoking Tobacco: Never Assessed Hunger Vital Sign Answer Date Recorded Within the past 12 months, y ou worried that your food would run out before you got the money to buy more. Never true 08/02/19 23 Within the past 12 months, t he food you bought just didn't last and you didn't have money to get more. Never true 08/02/2022 Comments Unknown Sex and Gender Information Value Date Recorded Sex Assigned at Not on file Legal Sex Female 11:39 AM CDT Gender Identity Not on file Sexual Orientation Not on file documented as of this encounter Plan of Treatment Not on file documented as of this encounter Visit Diagnoses Not on filedocumented in this encounter Additional Health Concerns Infection Onset Date Last Indicated Resolved Time COVID-19 Under Investigation 2022 08/01/202208/01/2022 12:59 PM WIND PROJECT MANAGER documented as of this encounter Care Teams Medical Editor Relationship Specialty Start Date End Date Alton Bull MD [address] [place] [address] PCP - General 10/26/19 documented as of this encounter
--- OUTSIDE RECORDS SUMMARY | 2025-05-04 16:03 | XMS_ITS | Encounter Summary ---
Author Organization [facility] Address [address] [place] [address] Care Team Providers Care Roll Tester Name Role Phone Alton Bull MD Primary Care Provider [phone] Encounter Details Date Type Department Care Team (Late st Contact Info) Description 07/31/2022 Ophth Exam [facility] [address] [place] [address] Vangie James, [address] [place] [address] Social History Tobacco Use Types Packs/Day Years [...] Indicated Resolved Time COVID-19 Under Investigation 2022 2022 2022 12:59 PM RETAIL SALES SPECIALIST documented as of this encounter Care Teams Roll Tester Relationship Specialty Start Date End Date Alton Bull MD [address] [place] [address] PCP - General 10/26/19 documented as of this encounter
--- OUTSIDE RECORDS SUMMARY | 2025-05-04 16:03 | XMS_ITS | Clinical Summary ---
Author Organization [facility] Address [address] [facility] [place] [address] Care Team Providers Care Equities Trader Name Role Phone Alton Bull MD Primary Care Provider [phone] Source Comments [facility],non-owned Affiliates and Associated Physician Practices is amultiple site organization consisting of ambulatory clinics and hospital sitesin [place], [place]. This disclosure is being madepursuant to the Care Everywhere program and may not contain all information available regarding this patient. Last updated 18.[facility] Allergies No known active allergies Medications * Be aware that medications may not be up to date on this document. Alwaysverify current medications with the patient. acetaminophen (Tylenol) 325 MG tabletIndicati ons:Fall from ground level Take 2 (two) tablets by mouth every 6 hours as needed Maximum allowable Acetaminophen amount = 4 Grams (4000 mg) / 24 hours. 3 Active apixaban (Eliquis) 2.5 MG tablet Take 1 (one) tablet by mouth 2 times daily 3 Active escitalopram (Lexapro) 10 MG tabletIndicati ons:Fall from ground level Take 1 (one) tablet by mouth once daily 3 Active anastrozole (Arimidex) 1 MG tabletIndicati ons:Fall from ground level Take 1 (one) tablet by mouth once daily 3 Active dilTIAZem coated beads 24hr (Cardizem CD) 240 MG capsuleIndicat ions:Fall from ground level Take 1 (one) capsule by mouth once daily 3 Active artificial tears ophthalmic solution Instill 1 (one) drop into both eyes 3 times daily as needed 3 Active pregabalin (Lyrica) 25 MG capsule Take 1 (one) capsule by mouth 2 times daily 3 Active Active Problems Problem Noted Date Diagnosed Date Fall from ground level 07/31/2022 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 (FLUZONE HIGH-DOSE QUADRIVALENT; 65Y+), 0.7 ML (HD-IIV4) 04/19/2019 Family History Medical History Relation Name Comments CVA Mother Relation Name Status Comments Mother Social History Tobacco Use Types Packs/Day Years [...] Sign Reading Time Taken Comments Blood Pressure 189/84 08/03/2022 11:12 AM HYGIENE ASSISTANT Pulse 100 08/03/2022 11:12 AM HYGIENE ASSISTANT Temperature 36.6 C (97.8 F) 08/03/2022 11:12 AM HYGIENE ASSISTANT Respiratory Rate 18 08/03/2022 4:29 AM HYGIENE ASSISTANT Oxygen Saturation 96% 08/03/2022 11:12 AM HYGIENE ASSISTANT Inhaled Oxygen Concentration - - Weight 56.7 kg (125 lb) 07/31/2022 6:26 PM HYGIENE ASSISTANT Height 157.5 cm (5' 2) 07/31/2022 6:26 PM HYGIENE ASSISTANT Body Mass Index 22.86 07/31/2022 6:26 PM HYGIENE ASSISTANT Plan of Treatment Health Maintenance Due Date Last Done Comments BONE DENSITY TESTING 1940 MEDICARE AWV 12 MONTHS 1940 DTAP/TDAP/TD VACCINES (1 - Tdap) 1957 PNEUMOCOCCAL VACCINE 50+ (1 of 2 - PCV) 1957 ZOSTER VACCINE (1 of 2) 1988 Respiratory Syncytial Virus (RSV) Vaccine Pt: or over 60 yrs (1 - 1-dose 75+ series) 2013 DIABETES-FOOT EXAM WITH MONOFILAMENT 07/31/2022 DIABETES-HGB A1C 01/30/2023 08/02/2022 DEPRESSION SCREENING 07/29/2024 DIABETES RETINOPATHY SCREENING 07/31/2024 07/31/2022 COVID-19 VACCINE ( season) 2025 05/06/2022, 10/29/2021, 05/25/2021, Additional history exists INFLUENZA VACCINE (#1) 2025 2, 05/06/2022, 06/05/2021, Additional history exists HEPATITIS B VACCINE Aged Out No longe r eligible based on patient's age to complete this topic HIB VACCINE Aged Out No longer eligi ble based on patient's age to complete this topic HPV VACCINE Aged Out No longer eligi ble based on patient's age to complete this topic MENINGOCOCCAL (Group B) VACCINE SHARED DECISION-MAKING Aged Out No longer eligible based on patient's age to complete this topic MENINGOCOCCAL GROUPS A/C/Y/W VACCINE Aged Out No longer eligible based on patient's age to complete this topic Procedures Procedure Name Priority Date/Time Associated Diagnosis Comments HEMOGLOBIN A1C Routine 08/02/2022 5:51 AM HYGIENE ASSISTANT Hypoglycemia Type 2 diabetes mellitus with diabetic nephropathy, without long-term current use of insulin from Last 3 Months or Most Recently Relevant to Health Maintenance Results * (ABNORMAL) HEMOGLOBIN A1C (08/02/2022 5:51 AM HYGIENE ASSISTANT) Hemoglobin A1c 5.9(H) <=5.6 % 08/02/2022 8:09 AM HYGIENE ASSISTANT [facility] Estimated Average Glucose 123 mg/dL 08/02/2022 8:09 AM HYGIENE ASSISTANT [facility] Comment: HbA1c Interpretation: Normal : < 5.7% Pre-diabetes: 5.7-6.4% Diabetes: Equal to or greater than 6.5% Test results diagnostic of diabetes should be repeated for confirmation. Treatment target values recommended by ADA and other clinical organizations should be used to evaluate metabolic control in patients. Reference: [place] Diabetes Association, Standards of Care in Diabetes -2020 In patients 70 years and older consider HbA1c target range of 7.0-7.5% (Reference: Abhay Carpio et al. JAMDA. 2012) The Sebia assay for the measurement of HbA1c is a National Glycohemoglobin Standardization Program (NGSP) certified method. Blood BLOOD SPECIMEN / Unknown Lab Venipuncture / Unknown 08/02/2022 5:51 AM HYGIENE ASSISTANT 08/02/2022 6:31 AM HYGIENE ASSISTANT Michael Condon VOICE WRITING REPORTER-SURGICAL FIRST ASSISTANT LAB - CHEMISTRY ORDERAB LES Final Result [facility] [address] [place] [address], [facility] [phone] from Last 3 Months or Most Recently Relevant to Health Maintenance Insurance [facility] MEDICARE MEDICARE [facility] MEDICARE MEDICARE Advance Directives * Full Code (Latest Code Status on File) Date Activated Date Inactivated Comments 07/31/2022 8:45 PM 08/03/2022 4:12 PM Care Teams Equities Trader Relationship Specialty Start Date End Date Alton Bull MD [address] [place] [address] PCP - General 10/26/19
--- OUTSIDE RECORDS SUMMARY | 2025-05-04 16:03 | XMS_ITS | Clinical Summary ---
Author Organization [facility] Address [address] [place] [id number] Phone Care Team Providers Care Business Lawyer Name Role Phone Alton Bull MD Primary Care Provider [phone] Allergies No known active allergies Medications ALPRAZolam (XANAX) 0.5 MG tablet 03/08/2014 Active omeprazole (PriLOSEC) [address] capsule 03/08/2014 Activ e digoxin (LANOXIN) 125 MCG tablet 03/06/2014 Active cinnamon 500 MG capsule 03/06/2014 Active TOUJEO SOLOSTAR 300 UNIT/ML injection INJECT 76 UNITS SQ DAILY 2 02/24/2019 Active CARTIA XT 240 MG 24 hr capsule Take 240 mg by mouth 1 (one) time each day 3 02/14/2019 Active escitalopram (LEXAPRO) 10 MG tablet TK 1 T PO QD 1 01/19/2019 Active anastrozole (ARIMIDEX) 1 MG chemo tablet TK 1 T PO D 11/16/2019 Acti ve ELIQUIS 2.5 MG tablet TK 1 T PO BID 12/09/2019 Active Multiple Vitamin (Daily-Jude) tablet Take 1 tablet by mouth daily Active metoprolol succinate XL (TOPROL-XL) 25 MG 24 hr tablet 06/20/2021 Act fernando OneTouch Ultra test strip USE 1 STRIP TO CHECK GLUCOSE ONCE DAILY 07/21/2021 Active pravastatin (PRAVACHOL) 40 MG tablet Take 1 tablet by mouth once daily 90 tablet 06/16/2022 Active pregabalin (LYRICA) 25 MG capsule Take 25 mg by mouth in the morning and 25 mg before bedtime. 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 Anemia 03/08/2014 Immunizations Immunization Administration Dates Next Due Influenza Split High Dose Pr eservative Free IM 04/19/2019,05/04/2018,05/15/2017,04/10,05/24/2015,04/24/2014,05/12/2013 ,04/25/2012 Influenza TIV (IM) 05/29/2022,06/05/2021, 020 Pneumococcal Conjugate 03/29/2018 Pneumococcal Conjugate 13-Valent 05/24/2015 Pneumococcal Polysaccharide 12/16/2016 Zoster 05/12/2013 Zoster Recombinant 12/24/2018,10/25/2018 Family History Medical History Relation Comments Cerebrovascular accident Mother Anemia Neg Hx Coronary arteriosclerosis Neg Hx Diabetes mellitus Neg Hx Dyslipidemia Neg Hx Heart disease Neg Hx Hypertensive disorder Neg Hx Kidney disease Neg Hx Kidney stone Neg Hx Malignant neoplastic disease Neg Hx Relation Status Comments Mother Social History Tobacco Use Types Packs/Day Years Used Date Smoking Tobacco: Former Smokeless Tobacco: Never Alcohol Use Standard Drinks/Week Comments Not Currently 0 (1 standard drink = 0.6 oz pur e alcohol) Comments Unknown Sex and Gender Information Value Date Recorded Sex Assigned at Not on file Legal Sex Female 7:50 AM [facility] Gender Identity Not on file Sexual Orientation Not on file Last Filed Vital Signs Vital Sign Reading Time Taken Comments Blood Pressure 134/70 06/25/2022 2:19 PM SALES PROJECT ENGINEER Pulse 60 06/25/2022 2:19 PM SALES PROJECT ENGINEER Temperature 36.2 C (97.1 F) 06/25/2022 2:19 PM SALES PROJECT ENGINEER Respiratory Rate - - Oxygen Saturation - - Inhaled Oxygen Concentration - - Weight 73.5 kg (162 lb) 06/25/2022 2:19 PM SALES PROJECT ENGINEER Height 154.9 cm (5' 1) 06/25/2022 2:19 PM SALES PROJECT ENGINEER Body Mass Index 30.61 06/25/2022 2:19 PM SALES PROJECT ENGINEER Plan of Treatment Health Maintenance Due Date Last Done Comments Influenza Vaccine (#1) 2025 2, 06/05/2021, 05/12/2020 Pneumococcal PPSV23/PCV13 65 + Years / Low and Medium Risk Completed 12/16/2016, 05/24/2015 Insurance MEDICARE [facility] Care Teams Business Lawyer Relationship Specialty Start Date End Date Alton Bull MD [address] [place] [address] PCP - General Family Medicine 12/14/20
[2025-05-04 16:20] LABS: Alanine Aminotransferase 16 U/L (6-35); Albumin Level 4.1 g/dL (3.5-5.1); Alkaline Phosphatase 84 U/L (38-126); Anion Gap 8 mmol/L (4-12); Aspartate Amino Transferase 35 U/L (14-36); Bilirubin,Total 0.7 mg/dL (0.2-1.3); Blood Urea Nitrogen 31 mg/dL (7-17); Calcium 9.1 mg/dL (8.4-10.2); Carbon Dioxide 24 mmol/L (22-30); Chloride 105 mmol/L (98-107); Estimated Glomerular Filt Rate 24; Glucose 123 mg/dL (65-110); Potassium 4.8 mmol/L (3.4-5.0); Sodium 137 mmol/L (137-145); Total Protein 7.7 g/dL (6.3-8.2)
== END 2025-05-04 15:14 | disposition home or self-care (01) ==
LOC: ANHLAB 15:14
PROVIDERS: PCP Family Medicine; Visit Provider Internal Medicine Hematology & Oncology
DX: C50.411 Malignant neoplasm of upper-outer quadrant of right female breast (principal)
CPT/HCPCS: 36415; 80053; 85025; 86300